=== PATIENT | male | born 1960 | race Caucasian/White ===

== ENCOUNTER 2023-06-08 13:39 | Inpatient (IN) ==
[2023-06-08] MEDS ORDERED: SODIUM CHLORIDE 0.9% 500 ML IV STA (14:12)
--- NOTE | 2023-06-08 14:25 | Emergency Department Note ---
Impression & Plan Lower abdominal pain, Diverticulitis, Abscess, Leukocytosis, Lyme disease ED Provider Note NAME: ONRMAN QUEZADA AGE: 62 SEX: M : 1960 ARRIVES VIA: Walk-In INFORMANT: [Patient] ED PROVIDER(S): [Roger Cristina MD] CHIEF COMPLAINT: Abdominal pain HISTORY OF PRESENT ILLNESS: The patient is a 62-year-old male who presents to the ER feeling unwell for around 2 months. The patient states that the whole family had pinworms and he decided to take treatment on May 26, about a week and a half ago. Patient states that he feels he is even worse since then. He has noticed lower mid abdominal pain that is pinching. He has noticed a poor urinary stream. His urine has been at times dark. He has had nausea, no vomiting. He has had a decreased appetite and poor bowel movements. He has noticed that if he takes a really deep breath, he coughs, it also hurts in both lungs when he takes a very deep breath. He is not short of breath. He walked a mile yesterday without any difficulty. There has been no fever. No stuffy nose or sore throat. No rash. PMHx/PSHx: See Below SOCIAL HISTORY: See Below. PHYSICAL EXAM: GENERAL: Patient is in no acute distress. HEENT: No acute trauma, normocephalic atraumatic, mucous membranes moist, no nasal congestion. NECK: No stridor, no adenopathy, no meningismus, trachea is midline. LUNGS: Clear to auscultation bilaterally, no wheeze, no rhonchi, breath sounds equal. HEART: Without murmurs gallops or rubs, regular rate and rhythm. ABDOMEN: Soft, mildly tender over the mid lower abdomen in the area of the bladder, there is no bladder distention appreciated. EXTREMITIES: No cyanosis or edema, full range of motion of all the joints without pain or difficulty, no signs for acute trauma. NEUROLOGIC: Oriented x 3, no acute motor or sensory deficits, no focal weakness. SKIN: No rash, no jaundice, no diaphoresis. Groin: Circumcised, no scrotal erythema. DIFFERENTIAL DIAGNOSIS: Tickborne illness, diverticulitis, urinary retention, prostatitis, UTI, viral illness, renal or liver failure, anemia, among others. EMERGENCY DEPARTMENT COURSE/PROCEDURES: Prior/Outside records reviewed: None. ECG per my interpretation: Indication was abdominal pain and weakness. The ECG shows a normal sinus rhythm with some sinus arrhythmia. The rate is 79. There is no ST elevation, no PVCs. The QTc is 394. Continuous Cardiac Monitoring per my interpretation: An order was placed for continuous cardiac monitoring. The monitor shows a rate of 97 with normal sinus rhythm. Postvoid bladder scan showed just over 100 cc, mild retention. MEDICAL DECISION MAKING: There is a moderate leukocytosis, this would be consistent with infection. There is a slightly low hemoglobin at 13.5. There is a normal platelet count. Renal panel shows a sodium of 132, somewhat low. No renal failure. There were some elevated liver enzymes, the bilirubin though was normal. No evidence for pancreatitis. ECG shows a sinus rhythm, no ischemia. Cardiac enzyme testing x1 is not consistent with acute cardiac injury. Urinalysis did not show infection. Anaplasmosis and Babesia smears were negative, the send out testing is pending. Lyme disease testing was positive. COVID, influenza and RSV test were negative. Chest x-ray did not show mediastinal widening, pneumonia or pneumothorax per my review. Abdominal and pelvis CT shows diverticulitis with a walled off abscess. Postvoid bladder scan did not show significant urinary retention. On exam, the patient was nontoxic. He was tender in the mid lower abdomen. The patient received IV Cipro and IV Flagyl for the diverticulitis. He received IV saline. He did not want anything for pain. I did speak with general surgery, Dr. Blood. No acute surgical intervention required tonight. As per the radiology note, this abscess is not amendable to IR drainage. I spoke with the patient, I spoke with case management, the patient will be hospitalized. With regard to the positive Lyme disease testing. Patient apparently has had Lyme disease before and this may be a leftover result. Confirmatory testing has been sent to the reference lab. DISPOSITION: Patient presentation and findings warrant a hospital stay. Past Med/Surg History Medical History Resendez esophagus Lyme disease Surgical History (Updated 06/08/23 @ 17:54 by Ramon Robles MD) H/O vasectomy Family History (Updated 06/08/23 @ 17:54 by Ramon Robles MD) Denies family history of Diabetes Dyslipidemia Asthma Social History Smoking Status: Never smoker Feels Safe at Home: Yes Allergies Allergies Allergy/AdvReac Type Severity Reaction Status Date / Time shellfish derived Allergy Intermediate Vomiting Verified 06/08/23 16:38 Home Meds Home Medications Medication Instructions Recorded Confirmed ibuprofen 800 mg tablet 800 mg PO TID PRN Pain 06/08/23 06/08/23 omeprazole 20 mg capsule,delayed 20 mg PO QAM 06/08/23 06/08/23 release Results & Data (ED) Vital Signs Vital Signs - 24 hr 06/08/23 13:44 06/08/23 14:53 06/08/23 15:54 Temperature 37.2 C Temperature Source Temporal Artery Scan Pulse Rate 97 H Pulse Rate [Left Finger] 85 Pulse Rhythm [Left Finger] Regular Pulse Strength [Left Finger] Normal Respiratory Rate 20 18 Respiratory Effort / Characteristics Non-Labored Non-Labored Spontaneous Respiratory Depth Normal Normal Respiratory Pattern Regular Blood Pressure 144/87 H Blood Pressure [Left Arm] 133/70 Blood Pressure Mean 106 Blood Pressure Mean [Left Arm] 91 Blood Pressure Position [Left Arm] Lying Pulse Oximetry 96 97 96 Oxygen Delivery Method Room Air Room Air Room Air Sepsis Recent Fever Within 48 Hours No Sepsis New/Unexplained Change in Mental Status N/A Sepsis Action Taken by Nursing No Action Required 06/08/23 17:23 Temperature Temperature Source Pulse Rate Pulse Rate [Left Finger] 87 Pulse Rhythm [Left Finger] Pulse Strength [Left Finger] Respiratory Rate 20 Respiratory Effort / Characteristics Non-Labored Spontaneous Respiratory Depth Normal Respiratory Pattern Blood Pressure Blood Pressure [Left Arm] 136/72 Blood Pressure Mean Blood Pressure Mean [Left Arm] 93 Blood Pressure Position [Left Arm] Pulse Oximetry 95 Oxygen Delivery Method Room Air Sepsis Recent Fever Within 48 Hours Sepsis New/Unexplained Change in Mental Status Sepsis Action Taken by [facility] Medications Current Medication List: was personally reviewed by me Laboratory Data Attestation: I reviewed the patient's lab results. 06/08/23 14:40 06/08/23 14:40 Lab Results 06/08/23 06/08/23 06/08/23 Range/Units 14:40 14:40 14:40 WBC 15.85 H (4.8-10.8) K/ul RBC 4.73 (4.70-6.10) M/uL Hgb 13.5 L (14.0-18.0) g/dl Hct 41.0 L (42.0-52.0) % MCV 86.7 (80.0-100.0) fL MCH 28.5 (25.0-34.0) pg MCHC 32.9 (32.0-36.0) g/dL RDW Std Deviation 39.9 (36.4-46.3) fL RDW Coeff of Leah 12.6 (11.5-14.5) % Plt Count 322 (130-400) K/uL MPV 10.1 (9.4-12.4) fL Immature Gran % (Auto) 0.8 % Neut % (Auto) 77.7 % Lymph % (Auto) 9.8 % [place] % (Auto) 10.9 % Eos % (Auto) 0.5 % Baso % (Auto) 0.3 % Neut # (Auto) 12.32 H (1.40-6.50) K/uL Lymph # (Auto) 1.56 (1.2-3.4) K/uL [place] # (Auto) 1.72 H (0.11-0.59) K/uL Eos # (Auto) 0.08 (0-0.50) K/uL Baso # (Auto) 0.05 (0-0.2) K/uL Immature Gran # (Auto) 0.12 (0.01-0.20) K/uL Echinocytes 1+ Sodium 132 L (136-145) mmol/L Potassium 3.6 (3.5-5.1) mmol/L Chloride 100 (98-107) mmol/L Carbon Dioxide 25 (21-32) mmol/L Anion Gap 7 (3-11) BUN 13 (6-23) mg/dl Creatinine 1.01 (0.6-1.4) mg/dl Est Cr Clr Drug Dosing 79.3 ml/min Est GFR ( Amer) 92.6 ml/min Est GFR (Non-Af Amer) 79.9 ml/min BUN/Creatinine Ratio 12.9 (10-20) Glucose 95 (70-99(Fasting)) mg/dl Calcium 9.6 (8.6-10.3) mg/dl Total Bilirubin 1.0 (0.2-1.0) mg/dl AST 61 H (13-39) U/L ALT 126 H (7-52) U/L Alkaline Phosphatase 194 H (34-104) U/L Troponin I High Sens 9.2 (0-20) pg/ml Total Protein 7.7 (6.0-8.3) gm/dl Albumin 3.9 (3.4-5.0) gm/dl Globulin 3.8 (2.5-4.0) gm/dl Albumin/Globulin Ratio 1.0 (0.9-2) Lipase 7 L (11-82) U/L Urine Color Urine Appearance (Clear) Urine pH (4.5-7.5) Ur Specific [place] (1.000-1.030) Urine Protein (Negative) Urine Glucose (UA) (Negative) Urine Ketones (Negative) Urine Blood (Negative) Urine Nitrite (Negative) Urine Bilirubin (Negative) Urine Urobilinogen (Negative) Ur Leukocyte Esterase (Negative) Anaplasma Smear See Comment Cancelled Babesia Smear See Comment Cancelled Lyme Disease IgG Ab (Negative) Lyme Disease IgM Ab (Negative) SARS-CoV-2 (PCR) (Negative) Influenza Type A (PCR) (Neg) Influenza Type B (PCR) (Neg) RSV (RT-PCR) (Neg) 06/08/23 06/08/23 06/08/23 Range/Units 14:40 14:40 14:45 WBC (4.8-10.8) K/ul RBC (4.70-6.10) M/uL Hgb (14.0-18.0) g/dl Hct (42.0-52.0) % MCV (80.0-100.0) fL MCH (25.0-34.0) pg MCHC (32.0-36.0) g/dL RDW Std Deviation (36.4-46.3) fL RDW Coeff of Leah (11.5-14.5) % Plt Count (130-400) K/uL MPV (9.4-12.4) fL Immature Gran % (Auto) % Neut % (Auto) % Lymph % (Auto) % [place] % (Auto) % Eos % (Auto) % Baso % (Auto) % Neut # (Auto) (1.40-6.50) K/uL Lymph # (Auto) (1.2-3.4) K/uL [place] # (Auto) (0.11-0.59) K/uL Eos # (Auto) (0-0.50) K/uL Baso # (Auto) (0-0.2) K/uL Immature Gran # (Auto) (0.01-0.20) K/uL Echinocytes Sodium (136-145) mmol/L Potassium (3.5-5.1) mmol/L Chloride (98-107) mmol/L Carbon Dioxide (21-32) mmol/L Anion Gap (3-11) BUN (6-23) mg/dl Creatinine (0.6-1.4) mg/dl Est Cr Clr Drug Dosing ml/min Est GFR ( Amer) ml/min Est GFR (Non-Af Amer) ml/min BUN/Creatinine Ratio (10-20) Glucose (70-99(Fasting)) mg/dl Calcium (8.6-10.3) mg/dl Total Bilirubin (0.2-1.0) mg/dl AST (13-39) U/L ALT (7-52) U/L Alkaline Phosphatase (34-104) U/L Troponin I High Sens (0-20) pg/ml Total Protein (6.0-8.3) gm/dl Albumin (3.4-5.0) gm/dl Globulin (2.5-4.0) gm/dl Albumin/Globulin Ratio (0.9-2) Lipase (11-82) U/L Urine Color Dark Yellow Urine Appearance Clear (Clear) Urine pH 5.5 (4.5-7.5) Ur Specific [place] 1.014 (1.000-1.030) Urine Protein Negative (Negative) Urine Glucose (UA) Negative (Negative) Urine Ketones Negative (Negative) Urine Blood Negative (Negative) Urine Nitrite Negative (Negative) Urine Bilirubin Negative (Negative) Urine Urobilinogen Negative (Negative) Ur Leukocyte Esterase Negative (Negative) Anaplasma Smear Babesia Smear Lyme Disease IgG Ab Positive A (Negative) Lyme Disease IgM Ab Equivocal A (Negative) SARS-CoV-2 (PCR) NEGATIVE (Negative) Influenza Type A (PCR) Negative (Neg) Influenza Type B (PCR) Negative (Neg) RSV (RT-PCR) Negative (Neg) Administered Medications Discontinued Medications Sodium Chloride (Nss) 500 mls @ 999 mls/hr IV .Q31M STA Stop: 06/08/23 14:42 Last Infusion: 06/08/23 15:32 Dose: 0 mls/hr Documented By: Admin: 06/08/23 14:44 Dose: 999 mls/hr Documented By: ML Ciprofloxacin (Cipro / D5w) 400 mg in 200 mls @ 100 mls/hr IV NOW STA; Protocol Stop: 06/08/23 19:01 Last Infusion: 06/08/23 18:17 Dose: 0 mls/hr Documented By: Admin: 06/08/23 17:14 Dose: 100 mls/hr Documented By: MARLYS Metronidazole (Flagyl) 500 mg in 100 mls @ 100 mls/hr IV NOW STA; Protocol Stop: 06/08/23 18:01 Last Infusion: 06/08/23 18:17 Dose: 0 mls/hr Documented By: Admin: 06/08/23 17:14 Dose: 100 mls/hr Documented By: MARLYS Ioversol (Optiray 320 100ml) 86 ml IV ONCE ONE Stop: 06/08/23 15:43 Last Admin: 06/08/23 15:43 Dose: 86 ml Documented By: EDK Imaging Data Radiologist's Impression: Abdomen/Pelvis CT 06/08/23 14:[address] WITH IV CONTRAST CT DOSE: 1293.42 mGy.cm HISTORY: Acute lower abdominal pain lower abd pain TECHNIQUE: Multiaxial CT images of the abdomen and pelvis were performed following the IV administration of 86 cc of Optiray, A dose lowering technique was utilized adhering to the principles of ALARA. COMPARISON STUDY: None. FINDINGS: Subsegmental bibasilar atelectasis. Unremarkable spleen, pancreas and adrenal glands. Contracted gallbladder. Remarkable liver. Patent portal vein. Unremarkable kidneys. No hydronephrosis. Mild prostatomegaly. Mild nonspecific urinary bladder wall thickening. Small fat filled inguinal hernias are suggested. No aortic aneurysm or lymphadenopathy. There is no bowel obstruction. Air-fluid levels are noted throughout the large bowel. Colonic diverticulosis. There is wall thickening with mucosal hyperemia of the proximal sigmoid colon with adjacent inflammatory stranding and peritoneal thickening/enhancement. A focus of extraluminal gas is noted within the sigmoid mesocolon on image 217. Ill-defined adjacent fluid within the mesocolon measures up to 6 cm. The appendix is not definitively seen. Tiny fat filled umbilical hernia. Posterior annular disc bulge at L5-S1 with bilateral foraminal narrowing No acute fracture. IMPRESSION: 1. Acute sigmoid diverticulitis with contained perforation. There is a 6 cm phlegmon/developing abscess without a mature wall. Therefore this would not be amendable to percutaneous biopsy at this time. 2. No bowel obstruction. 3. Additional findings as above. ACT 112: Negative or not required by law. The above report was generated using voice recognition software. It may contain grammatical, syntax or spelling errors. Electronically signed by: Larry Osborne M.D. 06/08/2023 4:26 PM Chest X-Ray 06/08/23 14:13 XR chest 1V portable HISTORY: 62 years-old Male abd pain acute chest and abdominal pain COMPARISON: None TECHNIQUE: AP view of the chest FINDINGS: Cardiac mediastinal and hilar silhouettes are within normal limits. No pneumothorax, pleural effusion, airspace consolidation or pulmonary edema. Bones appear grossly intact. IMPRESSION: No acute process. ACT 112: Negative or not required by law. The above report was generated using voice recognition software. It may contain grammatical, syntax or spelling errors. Electronically signed by: Larry Osborne M.D. 06/08/2023 3:09 PM Discharge Plan Visit Data Chief Complaint: Abdominal Pain Stated Complaint: LOWER ABDOMINAL PAIN, PINWORMS ED Provider: Roger Cristina Discharge Problem: Lower abdominal pain, Diverticulitis, Abscess, Leukocytosis, Lyme disease Patient Disposition: Admitted As Inpatient Condition: Fair Discharge Instructions Interventions: ED Discharge Assessment Last Done: 06/08/23 21:04
[2023-06-08 15:07] LABS: Appearance Urine Clear (Clear); Bilirubin Urine Negative (Negative); Blood Urine Negative (Negative); Color Urine Dark Yellow; Glucose Urine UA Negative (Negative); Ketones Urine Negative (Negative); Leukocyte Esterase Urine Negative (Negative); Nitrite Urine Negative (Negative); Protein Urine Negative (Negative); Specific Gravity Urine 1.014 (1.000-1.030); Urobilinogen Urine Negative (Negative); pH Urine 5.5 (4.5-7.5)
--- NOTE | 2023-06-08 15:11 | XRay Report ---
XR chest 1V portable HISTORY: 62 years-old Male abd pain acute chest and abdominal pain COMPARISON: None TECHNIQUE: AP view of the chest FINDINGS: Cardiac mediastinal and hilar silhouettes are within normal limits. No pneumothorax, pleural effusion , airspace consolidation or pulmonary edema. Bones appear grossly intact. IMPRESSION: No acute process. ACT 112: Negative or not required by law. The above report was generated using voice recognition software. It may contain grammatical, syntax o r spelling errors. Electronically signed by: Larry Osborne M.D. 06/08/2023 3:09 PM
[2023-06-08 15:14] LABS: Basophils # (auto) 0.05 K/uL (0-0.2); Basophils % (auto) 0.3 %; Eosinophils # (auto) 0.08 K/uL (0-0.50); Eosinophils % (auto) 0.5 %; Hemoglobin 13.5 g/dl (14.0-18.0); Immature Granulocytes # (auto) 0.12 K/uL (0.01-0.20); Immature Granulocytes % (auto) 0.8 %; Lymphocytes # (auto) 1.56 K/uL (1.2-3.4); Lymphocytes % (auto) 9.8 %; Mean Corpuscular Hemoglobin 28.5 pg (25.0-34.0); Mean Corpuscular Hgb Conc 32.9 g/dL (32.0-36.0); Mean Corpuscular Volume 86.7 fL (80.0-100.0); Mean Platelet Volume 10.1 fL (9.4-12.4); Monocytes # (auto) 1.72 K/uL (0.11-0.59); Monocytes % (auto) 10.9 %; Neutrophils # (auto) 12.32 K/uL (1.40-6.50); Neutrophils % (auto) 77.7 %; Platelet Count 322 K/uL (130-400); RDW Coefficient of Variation 12.6 % (11.5-14.5); RDW Standard Deviation 39.9 fL (36.4-46.3); Red Blood Count 4.73 M/uL (4.70-6.10); White Blood Count 15.85 K/ul (4.8-10.8)
[2023-06-08 15:22] LABS: Albumin Level 3.9 gm/dl (3.4-5.0); Calcium 9.6 mg/dl (8.6-10.3); Potassium 3.6 mmol/L (3.5-5.1)
[2023-06-08 15:28] LABS: BUN Creatinine Ratio 12.9 (10-20); Creatinine Clr Calc Pharmacy 79.3 ml/min; Est GFR (African American) 92.6 ml/min; Est GFR (Non-African American) 79.9 ml/min; Globulin 3.8 gm/dl (2.5-4.0); Total Protein 7.7 gm/dl (6.0-8.3)
[2023-06-08 15:32] LABS: Influenza A virus by PCR Negative (Neg); Influenza B virus by PCR Negative (Neg); RSV by PCR Negative (Neg); SARS CoV2 RNA(COVID-19) Ceph NEGATIVE (Negative)
[2023-06-08 15:32] LABS: Troponin I High Sensitivity 9.2 pg/ml (0-20)
[2023-06-08 15:41] LABS: Echinocytes 1+
[2023-06-08] MEDS ORDERED: OPTIRAY 320 100ml IV ONE (15:42)
--- NOTE | 2023-06-08 16:29 | CT Scan Report ---
ABDOMEN AND PELVIS CT WITH IV CONTRAST CT DOSE: 1293.42 mGy.cm HISTORY: Acute lower abdominal pain lower abd pain TECHNIQUE: Multiaxial CT images of the abdomen and pelvis were performed following the IV administrat ion of 86 cc of Optiray, A dose lowering technique was utilized adhering to the principles of ALARA. COMPARISON STUDY: None. FINDINGS: Subsegmental bibasilar atelectasis. Unremarkable spleen, pancreas and adrenal glands. Contr acted gallbladder. Remarkable liver. Patent portal vein. Unremarkable kidneys. No hydronephrosis. Mil d prostatomegaly. Mild nonspecific urinary bladder wall thickening. Small fat filled inguinal hernias are suggested. No aortic aneurysm or lymphadenopathy. There is no bowel obstruction. Air-fluid levels are noted throughout the large bowel. Colonic diverti culosis. There is wall thickening with mucosal hyperemia of the proximal sigmoid colon with adjacent inflammatory stranding and peritoneal thickening/enhancement. A focus of extraluminal gas is noted wi thin the sigmoid mesocolon on image 217. Ill-defined adjacent fluid within the mesocolon measures up to 6 cm. The appendix is not definitively seen. Tiny fat filled umbilical hernia. Posterior annular d isc bulge at L5-S1 with bilateral foraminal narrowing No acute fracture. IMPRESSION: 1. Acute sigmoid diverticulitis with contained perforation. There is a 6 cm phlegmon/developing absce ss without a mature wall. Therefore this would not be amendable to percutaneous biopsy at this time. 2. No bowel obstruction. 3. Additional findings as above. ACT 112: Negative or not required by law. The above report was generated using voice recognition software. It may contain grammatical, syntax o r spelling errors. Electronically signed by: Larry Osborne M.D. 06/08/2023 4:26 PM
[2023-06-08] MEDS ORDERED: CIPROFLOXACIN / D5W 400 MG/200 ML BAG IV STA (17:02)
[2023-06-08] MEDS ORDERED: metroNIDAZOLE 500 MG/100 ML BAG IV STA (17:02)
--- NOTE | 2023-06-08 18:01 | History & Physical Report ---
Date of Service June 08, 2023 Assessment & Plan (1) Abscess of sigmoid colon due to diverticulitis: Plan: 62-year-old male with past medical history of Resendez's esophagus who presented to the ED with abdominal pain since last 1 month. left lower abdominal pain about a month ago which progressively worsened. Leukocytosis present. Mild hyponatremia sodium of 132. transaminitis with elevated AST, ALT and ALP. Lipase is within normal limits. Urinalysis not suggestive of infection. CT abdomen pelvis was done; personally reviewed. Found to have acute sigmoid diverticulitis with contained perforation. 6 cm phlegmon/developing abscess without mature wall. chest x-ray reviewed personally; no acute process. EKG personally interpreted; normal sinus rhythm N.p.o. for now with sips of water and medication IV Zosyn IV fluids with D5 NS Pain control with Tylenol and morphine. General surgery contacted from the ED; we will follow-up on recommendation. Obtain hepatitis panel and right upper quadrant ultrasound for elevated liver enzyme Mild hyponatremia Sodium of 132 Likely due to poor oral intake Started on normal saline We will follow-up on BMP tomorrow AM. History of Resendez esophagus On omeprazole DVT prophylaxis SCDs Full code Time spent evaluating patient, direct bedside care, chart review, placing orders, interpretation of diagnostic studies, discussion with consultants, patient, and family members, as well as other required patient management activities is 75 minutes. Please note the above document was generated using voice recognition software. It may contain grammatical, syntax or spelling errors. Any formal questions or concerns about the content, text or information contained within the body of this dictation should be directly addressed to the provider for clarification History of Present Illness Chief Complaint: Abdominal pain for 1 month Primary Care Provider: Donavon Saunders PA-C History obtained from interview with the patient and chart review. Patient is a 62-year-old male with past medical history of Resendez's esophagus who presented to the ED with abdominal pain since last 1 month. Patient reports that he started to notice left lower abdominal pain about a month ago which progressively worsened. He reports night sweats; denies any episode of fever or chills. He reports headache; occasional diarrhea and pain on urination He denies diarrhea or constipation; no nausea or vomiting. He reports taking medication for pinworms about 2 weeks ago; reports that things have worsened more since then. He was recommended by his family member to seek medical attention. In the ED, patient was afebrile, normotensive and saturating well on room air. On lab work; leukocytosis present. Mild hyponatremia sodium of 132. He also has transaminitis with elevated AST, ALT and ALP. Lipase is within normal limits. Urinalysis not suggestive of infection. CT abdomen pelvis was done; personally reviewed. Found to have acute sigmoid diverticulitis with contained perforation. 6 cm phlegmon/developing abscess without mature wall. chest x-ray reviewed personally; no acute process. EKG personally interpreted; normal sinus rhythm ED physician discussed the case with general surgery. Recommended admission with IV antibiotics, supportive care and bowel rest. Past medical history; Resendez esophagus; reports to get endoscopy every 2 years Past surgical history; vasectomy Social history; does not smoke. Drinks 1-2 beers daily. Last drink was 4 days ago. No history of withdrawals. Family history; no pertinent history. Allergies Allergy/AdvReac Type Severity Reaction Status Date / Time shellfish derived Allergy Intermediate Vomiting Verified 06/08/23 16:38 Home Medications Medication Instructions Recorded Confirmed Type ibuprofen 800 mg tablet 800 mg PO TID PRN Pain 06/08/23 06/08/23 History omeprazole 20 mg capsule,delayed 20 mg PO QAM 06/08/23 06/08/23 History release Past Med/Surg History Medical History (Updated 06/08/23 @ 17:55 by Ramon Robles MD) Resendez esophagus Surgical History (Updated 06/08/23 @ 17:54 by Ramon Robles MD) H/O vasectomy Family History (Updated 06/08/23 @ 17:54 by Ramon Robles MD) Denies family history of Diabetes Dyslipidemia Asthma Social History Smoking Status: Never smoker Feels Safe at Home: Yes Review of Systems Review of Systems: All systems reviewed & are unremarkable except as noted in Subjective Physical Exam Physical Exam: Constitutional: WD/WN, vitals as above, NAD, sitting up in bed, pleasant, conversing easily Respiratory: Bilateral vesicular breath sound. Cardiovascular: RRR, no murmur, no edema Vessels: no JVD or carotid bruit Chest: normal inspection of chest Abdomen: Tenderness present in left lower quadrant. Bowel sound present. Musculoskeletal: no cyanosis or clubbing, extremities motor strength 5/5 Skin: no rashes, warm and dry normal turgor Neurologic: PERRL, EOMI, accommodation nl, no face palsy, no dysarthria CN's II- XI intact bilaterally and moves all extremities Psychiatric: A+Ox3, euthymic affect Results & Data Results & Data Vital Signs (Past 12 Hours) Vital Signs Temp Pulse Pulse Resp BP BP Pulse Ox 06/08/23 17:23 87 20 136/72 95 06/08/23 15:54 85 18 133/70 96 06/08/23 14:53 97 06/08/23 13:44 37.2 C 97 H 20 144/87 H 96 O2 Del Method 06/08/23 17:23 Room Air 06/08/23 15:54 Room Air 06/08/23 14:53 Room Air 06/08/23 13:44 Room Air Laboratory Results Laboratory Results WBC 15.85 K/ul (4.8-10.8) H 06/08/23 14:40 RBC 4.73 M/uL (4.70-6.10) 06/08/23 14:40 Hgb 13.5 g/dl (14.0-18.0) L 06/08/23 14:40 Hct 41.0 % (42.0-52.0) L 06/08/23 14:40 MCV 86.7 fL (80.0-100.0) 06/08/23 14:40 MCH 28.5 pg (25.0-34.0) 06/08/23 14:40 MCHC 32.9 g/dL (32.0-36.0) 06/08/23 14:40 RDW Std Deviation 39.9 fL (36.4-46.3) 06/08/23 14:40 RDW Coeff of Leah 12.6 % (11.5-14.5) 06/08/23 14:40 Plt Count 322 K/uL (130-400) 06/08/23 14:40 MPV 10.1 fL (9.4-12.4) 06/08/23 14:40 Immature Gran % (Auto) 0.8 % 06/08/23 14:40 Neut % (Auto) 77.7 % 06/08/23 14:40 Lymph % (Auto) 9.8 % 06/08/23 14:40 [place] % (Auto) 10.9 % 06/08/23 14:40 Eos % (Auto) 0.5 % 06/08/23 14:40 Baso % (Auto) 0.3 % 06/08/23 14:40 Neut # (Auto) 12.32 K/uL (1.40-6.50) H 06/08/23 14:40 Lymph # (Auto) 1.56 K/uL (1.2-3.4) 06/08/23 14:40 [place] # (Auto) 1.72 K/uL (0.11-0.59) H 06/08/23 14:40 Eos # (Auto) 0.08 K/uL (0-0.50) 06/08/23 14:40 Baso # (Auto) 0.05 K/uL (0-0.2) 06/08/23 14:40 Immature Gran # (Auto) 0.12 K/uL (0.01-0.20) 06/08/23 14:40 Echinocytes 1+ 06/08/23 14:40 Sodium 132 mmol/L (136-145) L 06/08/23 14:40 Potassium 3.6 mmol/L (3.5-5.1) 06/08/23 14:40 Chloride 100 mmol/L (98-107) 06/08/23 14:40 Carbon Dioxide 25 mmol/L (21-32) 06/08/23 14:40 Anion Gap 7 (3-11) 06/08/23 14:40 BUN 13 mg/dl (6-23) 06/08/23 14:40 Creatinine 1.01 mg/dl (0.6-1.4) 06/08/23 14:40 Est Cr Clr Drug Dosing 79.3 ml/min 06/08/23 14:40 Est GFR ( Amer) 92.6 ml/min 06/08/23 14:40 Est GFR (Non-Af Amer) 79.9 ml/min 06/08/23 14:40 BUN/Creatinine Ratio 12.9 (10-20) 06/08/23 14:40 Glucose 95 mg/dl (70-99(Fasting)) 06/08/23 14:40 Calcium 9.6 mg/dl (8.6-10.3) 06/08/23 14:40 Total Bilirubin 1.0 mg/dl (0.2-1.0) 06/08/23 14:40 AST 61 U/L (13-39) H 06/08/23 14:40 ALT 126 U/L (7-52) H 06/08/23 14:40 Alkaline Phosphatase 194 U/L (34-104) H 06/08/23 14:40 Troponin I High Sens 9.2 pg/ml (0-20) 06/08/23 14:40 Total Protein 7.7 gm/dl (6.0-8.3) 06/08/23 14:40 Albumin 3.9 gm/dl (3.4-5.0) 06/08/23 14:40 Globulin 3.8 gm/dl (2.5-4.0) 06/08/23 14:40 Albumin/Globulin Ratio 1.0 (0.9-2) 06/08/23 14:40 Lipase 7 U/L (11-82) L 06/08/23 14:40 Urine Color Dark Yellow 06/08/23 14:40 Urine Appearance Clear (Clear) 06/08/23 14:40 Urine pH 5.5 (4.5-7.5) 06/08/23 14:40 Ur Specific [place] 1.014 (1.000-1.030) 06/08/23 14:40 Urine Protein Negative (Negative) 06/08/23 14:40 Urine Glucose (UA) Negative (Negative) 06/08/23 14:40 Urine Ketones Negative (Negative) 06/08/23 14:40 Urine Blood Negative (Negative) 06/08/23 14:40 Urine Nitrite Negative (Negative) 06/08/23 14:40 Urine Bilirubin Negative (Negative) 06/08/23 14:40 Urine Urobilinogen Negative (Negative) 06/08/23 14:40 Ur Leukocyte Esterase Negative (Negative) 06/08/23 14:40 Anaplasma Smear Cancelled 06/08/23 14:40 Anaplasma Smear See Comment 06/08/23 14:40 Babesia Smear Cancelled 06/08/23 14:40 Babesia Smear See Comment 06/08/23 14:40 SARS-CoV-2 (PCR) NEGATIVE (Negative) 06/08/23 14:45 Influenza Type A (PCR) Negative (Neg) 06/08/23 14:45 Influenza Type B (PCR) Negative (Neg) 06/08/23 14:45 RSV (RT-PCR) Negative (Neg) 06/08/23 14:45 Impressions Abdomen/Pelvis CT 06/08/23 14:[address] WITH IV CONTRAST CT DOSE: 1293.42 mGy.cm HISTORY: Acute lower abdominal pain lower abd pain TECHNIQUE: Multiaxial CT images of the abdomen and pelvis were performed following the IV administration of 86 cc of Optiray, A dose lowering technique was utilized adhering to the principles of ALARA. COMPARISON STUDY: None. FINDINGS: Subsegmental bibasilar atelectasis. Unremarkable spleen, pancreas and adrenal glands. Contracted gallbladder. Remarkable liver. Patent portal vein. Unremarkable kidneys. No hydronephrosis. Mild prostatomegaly. Mild nonspecific urinary bladder wall thickening. Small fat filled inguinal hernias are suggested. No aortic aneurysm or lymphadenopathy. There is no bowel obstruction. Air-fluid levels are noted throughout the large bowel. Colonic diverticulosis. There is wall thickening with mucosal hyperemia of the proximal sigmoid colon with adjacent inflammatory stranding and peritoneal thickening/enhancement. A focus of extraluminal gas is noted within the sigmoid mesocolon on image 217. Ill-defined adjacent fluid within the mesocolon measures up to 6 cm. The appendix is not definitively seen. Tiny fat filled umbilical hernia. Posterior annular disc bulge at L5-S1 with bilateral foraminal narrowing No acute fracture. IMPRESSION: 1. Acute sigmoid diverticulitis with contained perforation. There is a 6 cm phlegmon/developing abscess without a mature wall. Therefore this would not be amendable to percutaneous biopsy at this time. 2. No bowel obstruction. 3. Additional findings as above. ACT 112: Negative or not required by law. The above report was generated using voice recognition software. It may contain grammatical, syntax or spelling errors. Electronically signed by: Larry Osborne M.D. 06/08/2023 4:26 PM Chest X-Ray 06/08/23 14:13 XR chest 1V portable HISTORY: 62 years-old Male abd pain acute chest and abdominal pain COMPARISON: None TECHNIQUE: AP view of the chest FINDINGS: Cardiac mediastinal and hilar silhouettes are within normal limits. No pneumothorax, pleural effusion, airspace consolidation or pulmonary edema. Bones appear grossly intact. IMPRESSION: No acute process. ACT 112: Negative or not required by law. The above report was generated using voice recognition software. It may contain grammatical, syntax or spelling errors. Electronically signed by: Larry Osborne M.D. 06/08/2023 3:09 PM Code Status & VTE Plan VTE Prophylaxis Plan VTE Prophylaxis will be ordered: Yes
[2023-06-08 18:04] LABS: Lyme Ab IgG w/WB Rflx Positive (Negative); Lyme Ab IgM w/WB Rflx Equivocal (Negative)
--- NOTE | 2023-06-08 19:40 | Surgery Consultation ---
Date of Consultation June 08, 2023 Assessment & Plan (1) Abscess of sigmoid colon due to diverticulitis: Alli has been admitted under medicine for actue diverticulitis. He is currently receiving IV Zosyn, bowel rest, supportive care. Abscess is currently not amenable to percutaneous drainage, but if patient does not improve with conservative care, will consider repeating CT. There is not acute surgical intervention required, case was reviewed with Dr. Blood. Supervising Physician Co-Signing Physician Notes I personally saw and evaluated the patient with Maisha Pradhan PA-C and agree with the assessment and plan. 62-year-old male with acute sigmoid diverticulitis with phlegmon versus developing abscess CT images and results were personally viewed interpreted by myself He has had about 2 weeks of abdominal pain and his CT scan is consistent with a perforated diverticulitis He has been admitted to the medical team and kept n.p.o. and started on IV antibiotics We will hold off on IR consult at this time as there is no mature abscess yet to drain We will follow along History of Present Illness Reason for Consultation: Diverticulitis History of Present Illness Alli is being seen in consultation for acute diverticulitis. He presented to the ED earlier today with history of LLQ abdominal pain which initially began about 1 month ago. He reports abdominal pain has been getting progressively worse, now with diarrhea. He notes the occasional night sweat, no documented fevers. of note, he was being treated for pinworms about 2 weeks ago. He has PMH of Resendez esophagus, no abdominal surgical history. CT of abd/pelvis done in the ED demonstrates Acute sigmoid diverticulitis with contained perforation. There is a 6 cm phlegmon/developing abscess without a mature wall. Labs reveal leukocytosis of 15.8, transaminitis with elevated AST, ALT and ALP, mild hyponatremia. Patient denies CP, SOB, fevers/chills. Allergies Allergy/AdvReac Type Severity Reaction Status Date / Time shellfish derived Allergy Intermediate Vomiting Verified 06/08/23 16:38 Home Medications Medication Instructions Recorded Confirmed Type ibuprofen 800 mg tablet 800 mg PO TID PRN Pain 06/08/23 06/08/23 History omeprazole 20 mg capsule,delayed 20 mg PO QAM 06/08/23 06/08/23 History release Patient History Medical History Resendez esophagus Lyme disease Surgical History (Updated 06/08/23 @ 17:54 by Ramon Robles MD) H/O vasectomy Family History (Updated 06/08/23 @ 17:54 by Ramon Robles MD) Denies family history of Diabetes Dyslipidemia Asthma Social History Smoking Status: Never smoker Communication Ability: Effective Package Drier Required: No Beliefs That Will Affect Care: None Feels Safe at Home: No Any Concerns about Your Family Situation: No Would You Like to Speak to Someone About Your Situation: No Safety Concerns: Feels Safe At This Time Assistive Devices: None Review of Systems Review of Systems: All systems reviewed & are unremarkable except as noted in HPI & below Physical Exam Constitutional: well developed and well nourished; no acute distress Eyes: PERRL, conjunctivae normal, anicteric sclerae Respiratory: normal respiratory effort, lungs clear to auscultation Cardiovascular: RRR, no murmur, no edema Gastrointestinal (Abdomen): Inspection/Auscultation: abdomen normal to inspection and normal bowel sounds; abdomen not distended Percussion/Palpation: + abdomen tender (LLQ) and abdomen soft; no guarding Skin: no rashes, warm and dry Psychiatric: A+Ox3, euthymic affect Results & Data Vital Signs (Past 12 Hours) Vital Signs Temp Pulse Pulse Resp BP BP Pulse Ox 06/08/23 19:10 86 21 94 06/08/23 19:00 75 21 96 06/08/23 19:00 132/78 06/08/23 18:37 19 140/101 H 98 06/08/23 17:23 87 20 136/72 95 06/08/23 15:54 85 18 133/70 96 06/08/23 14:53 97 06/08/23 13:44 37.2 C 97 H 20 144/87 H 96 O2 Del Method 06/08/23 19:10 06/08/23 19:00 06/08/23 19:00 06/08/23 18:37 Room Air 06/08/23 17:23 Room Air 06/08/23 15:54 Room Air 06/08/23 14:53 Room Air 06/08/23 13:44 Room Air Laboratory Results Abnormal lab results 06/08/23 06/08/23 06/08/23 Range/Units 14:40 14:40 14:40 WBC 15.85 H (4.8-10.8) K/ul Hgb 13.5 L (14.0-18.0) g/dl Hct 41.0 L (42.0-52.0) % Neut # (Auto) 12.32 H (1.40-6.50) K/uL [place] # (Auto) 1.72 H (0.11-0.59) K/uL Sodium 132 L (136-145) mmol/L AST 61 H (13-39) U/L ALT 126 H (7-52) U/L Alkaline Phosphatase 194 H (34-104) U/L Lipase 7 L (11-82) U/L Lyme Disease IgG Ab Positive A (Negative) Lyme Disease IgM Ab Equivocal A (Negative) Diagnostic Findings ABDOMEN AND PELVIS CT WITH IV CONTRAST CT DOSE: 1293.42 mGy.cm HISTORY: Acute lower abdominal pain lower abd pain TECHNIQUE: Multiaxial CT images of the abdomen and pelvis were performed following the IV administration of 86 cc of Optiray, A dose lowering technique was utilized adhering to the principles of ALARA. COMPARISON STUDY: None. FINDINGS: Subsegmental bibasilar atelectasis. Unremarkable spleen, pancreas and adrenal glands. Contracted gallbladder. Remarkable liver. Patent portal vein. Unremarkable kidneys. No hydronephrosis. Mild prostatomegaly. Mild nonspecific urinary bladder wall thickening. Small fat filled inguinal hernias are suggested. No aortic aneurysm or lymphadenopathy. There is no bowel obstruction. Air-fluid levels are noted throughout the large bowel. Colonic diverticulosis. There is wall thickening with mucosal hyperemia of the proximal sigmoid colon with adjacent inflammatory stranding and peritoneal thickening/enhancement. A focus of extraluminal gas is noted within the sigmoid mesocolon on image 217. Ill-defined adjacent fluid within the mesocolon measures up to 6 cm. The appendix is not definitively seen. Tiny fat filled umbilical hernia. Posterior annular disc bulge at L5-S1 with bilateral foraminal narrowing No acute fracture. IMPRESSION: 1. Acute sigmoid diverticulitis with contained perforation. There is a 6 cm phlegmon/developing abscess without a mature wall. Therefore this would not be amendable to percutaneous biopsy at this time. 2. No bowel obstruction. 3. Additional findings as above. PG Care Time/CCT Total # of Minutes Spent Total Time Spent with Patient: Total time spent is greater than 50% in coordination of care (as documented) at patient's floor/unit and/or counseling patient: Coding Level of Care Code 49386 INT INP/OBS CARE MIN Diagnoses Abscess of sigmoid colon due to diverticulitis K57.20
[2023-06-08] MEDS ORDERED: MoRPHine SULFATE 2 MG/ML CARP IV PRN (21:02)
[2023-06-08] MEDS ORDERED: PIPERACILLIN/TAZOBACTAM 4.5 GM (over 30 mins) IV ONE (21:15)
[2023-06-08] MEDS: ACETAMINOPHEN 325 MG TAB PO PRN (21:36)
[2023-06-08] MEDS: D5NSS + 20MEQ KCL 20 MEQ/1,000 ML BAG IV SCH (22:11)
[2023-06-09] MEDS: PIPERACILLIN/TAZOBACTAM 4.5 GM in DEXTROSE 5% 100 ML IV SCH ×2 (04:00→13:47)
[2023-06-09 04:26] LABS: Basophils # (auto) 0.05 K/uL (0-0.2); Basophils % (auto) 0.3 %; Eosinophils # (auto) 0.17 K/uL (0-0.50); Eosinophils % (auto) 1.2 %; Hematocrit (blood only) 38.1 % (42.0-52.0); Hemoglobin 12.6 g/dl (14.0-18.0); Immature Granulocytes # (auto) 0.13 K/uL (0.01-0.20); Immature Granulocytes % (auto) 0.9 %; Lymphocytes # (auto) 1.33 K/uL (1.2-3.4); Mean Corpuscular Hemoglobin 28.7 pg (25.0-34.0); Mean Corpuscular Hgb Conc 33.1 g/dL (32.0-36.0); Mean Corpuscular Volume 86.8 fL (80.0-100.0); Mean Platelet Volume 9.8 fL (9.4-12.4); Monocytes # (auto) 1.97 K/uL (0.11-0.59); Monocytes % (auto) 13.4 %; Neutrophils % (auto) 75.2 %; Platelet Count 286 K/uL (130-400); RDW Coefficient of Variation 12.6 % (11.5-14.5); RDW Standard Deviation 40.4 fL (36.4-46.3); Red Blood Count 4.39 M/uL (4.70-6.10); White Blood Count 14.75 K/ul (4.8-10.8)
[2023-06-09 04:49] LABS: Albumin Globulin Ratio 1.1 (0.9-2); Albumin Level 3.5 gm/dl (3.4-5.0); BUN Creatinine Ratio 10.8 (10-20); Bilirubin,Total 0.9 mg/dl (0.2-1.0); Calcium 9.3 mg/dl (8.6-10.3); Creatinine Clr Calc Pharmacy 78.5 ml/min; Est GFR (African American) 91.5 ml/min; Globulin 3.3 gm/dl (2.5-4.0); Total Protein 6.8 gm/dl (6.0-8.3)
[2023-06-09] MEDS: ACETAMINOPHEN 325 MG TAB PO PRN ×3 (07:15→20:37)
--- NOTE | 2023-06-09 08:14 | Ultrasound Report ---
US liver CLINICAL HISTORY: Elevated liver enzymes TECHNIQUE: Multiple real-time sonographic images of the right upper quadrant were obtained. Comparison: Comparison is made to CT abdomen pelvis 06/08/2023 FINDINGS: The liver is diffusely echogenic in appearance with poor ultrasound penetration, with normal contour, which is consistent with fatty infiltration. No focal mass lesions are seen. No intrahepatic duct al dilatation is seen. No gallstones or sludge are identified within the gallbladder. The gallbladde r wall is not thickened. There is no pericholecystic fluid present. A sonographic Munguia's sign was n ot elicited by the assistant professor of geography. The common duct measures 0.3 cm in diameter at the level of the hep atic artery. The visualized portions of the pancreas appear normal. The right kidney shows normal echogenicity, cortical thickness and renal contour. The right kidney sh ows no evidence of hydronephrosis or mass. No ascites or free fluid is seen in Cunha's pouch. IMPRESSION: Hepatic steatosis. ACT 112: Negative or not required by law. Electronically signed by: Gnio Barnes M.D. 06/09/2023 8:13 AM
[2023-06-09] MEDS: DOXYCYCLINE HYCLATE 100 MG CAP PO SCH ×2 (08:42→20:37)
--- NOTE | 2023-06-09 08:42 | Surgery Progress Note ---
Date of Service June 09, 2023 Assessment & Plan (1) Abscess of sigmoid colon due to diverticulitis: Plan: Patient here with acute sigmoid diverticulitis with developing phlegmon/abscess ~6cm WBC 14 (15). Vitals stable and patient afebrile Continue NPO/IVF/IV abx today for bowel rest Will follow along closely, no indication for acute surgical intervention at this time Will need outpt c-scope in future once recovers from this Admission and Anticipated Discharge Date Admission Date: June 08, 2023 Supervising Physician Co-Signing Physician Notes I personally saw and evaluated the patient with Melanie Chi PA-C and agree with the assessment and plan. 62-year-old male with acute sigmoid diverticulitis with phlegmon versus developing abscess He remained stable We will keep him n.p.o. for today If he does not have a lot of improvement, would plan on rescanning him in 2 to 3 days to see if there is something is developed into a drainable abscess Subjective Patient feeling okay- does report some LLQ discomfort. + intermittent nausea. no emesis. last c-scope 3 years ago. reports history of heavy beer drinking. Physical Exam Physical Exam: awake/alert, no distress Gastrointestinal (Abdomen): Inspection/Auscultation: + abdomen distended (mild) Percussion/Palpation: + abdomen tender (ttp in the LLQ) and abdomen soft Results & Data Vital Signs (Past 12 Hours) Vital Signs Temp Pulse Pulse Resp BP BP Pulse Ox 06/09/23 07:33 78 18 123/70 98 06/09/23 01:00 64 19 95 06/09/23 01:00 117/72 06/09/23 00:59 70 22 95 06/09/23 00:59 121/73 06/09/23 00:58 64 20 06/09/23 00:20 67 21 95 06/09/23 00:10 65 22 93 06/09/23 00:00 61 21 94 06/09/23 00:00 107/67 06/08/23 23:50 63 21 93 06/08/23 23:40 63 23 94 06/08/23 23:30 68 23 94 06/08/23 23:30 115/71 06/08/23 23:20 73 22 93 06/08/23 23:10 72 23 93 06/08/23 23:00 72 23 94 06/08/23 23:00 114/74 06/08/23 22:50 74 24 92 06/09/23 00:00 63 06/09/23 01:11 36.7 C 66 16 117/72 94 06/08/23 22:40 81 26 H 92 06/08/23 22:30 78 24 93 06/08/23 22:30 131/73 06/08/23 22:20 86 27 H 91 06/08/23 22:10 78 27 H 92 06/08/23 22:00 82 26 H 93 06/08/23 22:00 126/82 06/08/23 21:50 73 26 H 93 06/08/23 21:40 80 27 H 94 06/08/23 21:30 84 23 92 06/08/23 21:30 132/77 06/08/23 21:20 80 27 H 93 06/08/23 21:10 80 27 H 93 06/08/23 21:07 06/08/23 21:00 79 28 H 94 06/08/23 21:00 130/86 06/08/23 20:50 84 28 H 94 06/08/23 20:40 83 30 H 92 Pulse Ox O2 Del Method O2 Del Method 06/09/23 07:33 Room Air 06/09/23 01:00 06/09/23 01:00 06/09/23 00:59 06/09/23 00:59 06/09/23 00:58 06/09/23 00:20 06/09/23 00:10 06/09/23 00:00 06/09/23 00:00 06/08/23 23:50 06/08/23 23:40 06/08/23 23:30 06/08/23 23:30 06/08/23 23:20 06/08/23 23:10 06/08/23 23:00 06/08/23 23:00 06/08/23 22:50 06/09/23 00:00 06/09/23 01:11 Room Air 06/08/23 22:40 06/08/23 22:30 06/08/23 22:30 06/08/23 22:20 06/08/23 22:10 06/08/23 22:00 06/08/23 22:00 06/08/23 21:50 06/08/23 21:40 06/08/23 21:30 06/08/23 21:30 06/08/23 21:20 06/08/23 21:10 06/08/23 21:07 95 Room Air 06/08/23 21:00 06/08/23 21:00 06/08/23 20:50 06/08/23 20:40 PG Care Time/CCT Total # of Minutes Spent Total Time Spent with Patient: Total time spent is greater than 50% in coordination of care (as documented) at patient's floor/unit and/or counseling patient: Coding Level of Care Code 90696 SUB INP/OBS CARE 11/13MIN Diagnoses Abscess of sigmoid colon due to diverticulitis K57.20
[2023-06-09] MEDS: D5NSS + 20MEQ KCL 20 MEQ/1,000 ML BAG IV SCH (11:06)
--- NOTE | 2023-06-09 12:31 | Electrocardiogram Report ---
Test Reason : Blood Pressure : / mmHG Vent. Rate : 079 BPM Atrial Rate : 079 BPM P-R Int : 168 ms QRS Dur : 074 ms QT Int : 344 ms P-R-T Axes : 054 015 036 degrees QTc Int : 394 ms Normal sinus rhythm with sinus arrhythmia Normal ECG No previous ECGs available Confirmed by Gabe Clayton ([id number]) on 06/09/2023 12:30:51 PM Referred By: REFERRED SELF Confirmed By:Gabe Clayton
[2023-06-09] MEDS: metroNIDAZOLE 500 MG/100 ML BAG IV SCH ×2 (14:30→22:37)
[2023-06-09] MEDS: CEFEPIME 2,000 MG in SYRINGE 0 ML IV SCH ×2 (14:30→22:37)
[2023-06-09] MEDS ORDERED: PNEUMOCOCCAL Polysaccharide Vaccine 25mcg/0.5mL vial/Syr IM ONE (15:15)
--- NOTE | 2023-06-09 16:22 | Hospitalist Progress Note ---
Date of Service June 09, 2023 Assessment & Plan (1) Abscess of sigmoid colon due to diverticulitis: Plan: 62-year-old male with past medical history of Resendez's esophagus who presented to the ED with abdominal pain since last 1 month. left lower abdominal pain about a month ago which progressively worsened. CT abdomen pelvis done in the ED; found to have acute sigmoid diverticulitis with contained perforation. 6 cm phlegmon/developing abscess without mature wall Leukocytosis with WBC of 14. Sodium improved to 134. Transaminitis improving. Lipase is within normal limits. Urinalysis not suggestive of infection. chest x-ray reviewed personally; no acute process. EKG personally interpreted; normal sinus rhythm Ultrasound liver suggestive of fatty infiltration Blood culture pending. Appreciate general surgery's input; recommend to keep n.p.o. for now. IV cefepime plus Flagyl IV fluids with D5 NS Pain control with Tylenol and morphine. Mild hyponatremia Sodium of 132 on presentation Likely due to poor oral intake Started on normal saline with improvement to sodium of 134. History of Resendez esophagus On omeprazole DVT prophylaxis SCDs for now for possible procedure. Full code Time spent evaluating patient, direct bedside care, chart review, placing orders, interpretation of diagnostic studies, discussion with consultants, patient, and family members, as well as other required patient management activities is 60 minutes. Please note the above document was generated using voice recognition software. It may contain grammatical, syntax or spelling errors. Any formal questions or c oncerns about the content, text or information contained within the body of this dictation should be directly addressed to the provider for clarification Admission and Anticipated Discharge Date Admission Date: June 08, 2023 Subjective Patient seen and examined at bedside. He is lying on the bed comfortably; not in any distress. No increasing pain in left lower quadrant. Review of Systems Review of Systems: All systems reviewed & are unremarkable except as noted in Subjective Physical Exam Physical Exam: Constitutional: WD/WN, vitals as above, NAD, sitting up in bed, pleasant, conversing easily Respiratory: Bilateral vesicular breath sound. Cardiovascular: RRR, no murmur, no edema Vessels: no JVD or carotid bruit Chest: normal inspection of chest Abdomen: Tenderness present in left lower quadrant. Bowel sound present. Musculoskeletal: no cyanosis or clubbing, extremities motor strength 5/5 Skin: no rashes, warm and dry normal turgor Neurologic: PERRL, EOMI, accommodation nl, no face palsy, no dysarthria CN's II- XI intact bilaterally and moves all extremities Psychiatric: A+Ox3, euthymic affect Results & Data Results & Data Vital Signs (Past 12 Hours) Vital Signs Temp Pulse Pulse Resp BP Pulse Ox O2 Del Method 06/09/23 15:54 74 06/09/23 12:36 68 06/09/23 11:28 36.8 C 66 16 114/75 98 Room Air 06/09/23 07:33 78 18 123/70 98 Room Air Laboratory Results Laboratory Results WBC 14.75 K/ul (4.8-10.8) H 06/09/23 04:09 RBC 4.39 M/uL (4.70-6.10) L 06/09/23 04:09 Hgb 12.6 g/dl (14.0-18.0) L 06/09/23 04:09 Hct 38.1 % (42.0-52.0) L 06/09/23 04:09 MCV 86.8 fL (80.0-100.0) 06/09/23 04:09 MCH 28.7 pg (25.0-34.0) 06/09/23 04:09 MCHC 33.1 g/dL (32.0-36.0) 06/09/23 04:09 RDW Std Deviation 40.4 fL (36.4-46.3) 06/09/23 04:09 RDW Coeff of Leah 12.6 % (11.5-14.5) 06/09/23 04:09 Plt Count 286 K/uL (130-400) 06/09/23 04:09 MPV 9.8 fL (9.4-12.4) 06/09/23 04:09 Immature Gran % (Auto) 0.9 % 06/09/23 04:09 Neut % (Auto) 75.2 % 06/09/23 04:09 Lymph % (Auto) 9.0 % 06/09/23 04:09 [place] % (Auto) 13.4 % 06/09/23 04:09 Eos % (Auto) 1.2 % 06/09/23 04:09 Baso % (Auto) 0.3 % 06/09/23 04:09 Neut # (Auto) 11.10 K/uL (1.40-6.50) H 06/09/23 04:09 Lymph # (Auto) 1.33 K/uL (1.2-3.4) 06/09/23 04:09 [place] # (Auto) 1.97 K/uL (0.11-0.59) H 06/09/23 04:09 Eos # (Auto) 0.17 K/uL (0-0.50) 06/09/23 04:09 Baso # (Auto) 0.05 K/uL (0-0.2) 06/09/23 04:09 Immature Gran # (Auto) 0.13 K/uL (0.01-0.20) 06/09/23 04:09 Echinocytes 1+ 06/08/23 14:40 Sodium 134 mmol/L (136-145) L 06/09/23 04:09 Potassium 4.0 mmol/L (3.5-5.1) 06/09/23 04:09 Chloride 103 mmol/L (98-107) 06/09/23 04:09 Carbon Dioxide 25 mmol/L (21-32) 06/09/23 04:09 Anion Gap 6 (3-11) 06/09/23 04:09 BUN 11 mg/dl (6-23) 06/09/23 04:09 Creatinine 1.02 mg/dl (0.6-1.4) 06/09/23 04:09 Est Cr Clr Drug Dosing 78.5 ml/min 06/09/23 04:09 Est GFR ( Amer) 91.5 ml/min 06/09/23 04:09 Est GFR (Non-Af Amer) 79.0 ml/min 06/09/23 04:09 BUN/Creatinine Ratio 10.8 (10-20) 06/09/23 04:09 Glucose 118 mg/dl (70-99(Fasting)) H 06/09/23 04:09 Calcium 9.3 mg/dl (8.6-10.3) 06/09/23 04:09 Total Bilirubin 0.9 mg/dl (0.2-1.0) 06/09/23 04:09 AST 42 U/L (13-39) H 06/09/23 04:09 ALT 105 U/L (7-52) H 06/09/23 04:09 Alkaline Phosphatase 171 U/L (34-104) H 06/09/23 04:09 Troponin I High Sens 9.2 pg/ml (0-20) 06/08/23 14:40 Total Protein 6.8 gm/dl (6.0-8.3) 06/09/23 04:09 Albumin 3.5 gm/dl (3.4-5.0) 06/09/23 04:09 Globulin 3.3 gm/dl (2.5-4.0) 06/09/23 04:09 Albumin/Globulin Ratio 1.1 (0.9-2) 06/09/23 04:09 Lipase 7 U/L (11-82) L 06/08/23 14:40 Urine Color Dark Yellow 06/08/23 14:40 Urine Appearance Clear (Clear) 06/08/23 14:40 Urine pH 5.5 (4.5-7.5) 06/08/23 14:40 Ur Specific [place] 1.014 (1.000-1.030) 06/08/23 14:40 Urine Protein Negative (Negative) 06/08/23 14:40 Urine Glucose (UA) Negative (Negative) 06/08/23 14:40 Urine Ketones Negative (Negative) 06/08/23 14:40 Urine Blood Negative (Negative) 06/08/23 14:40 Urine Nitrite Negative (Negative) 06/08/23 14:40 Urine Bilirubin Negative (Negative) 06/08/23 14:40 Urine Urobilinogen Negative (Negative) 06/08/23 14:40 Ur Leukocyte Esterase Negative (Negative) 06/08/23 14:40 Anaplasma Smear Cancelled 06/08/23 14:40 Anaplasma Smear See Comment 06/08/23 14:40 Babesia Smear Cancelled 06/08/23 14:40 Babesia Smear See Comment 06/08/23 14:40 Lyme Disease IgG Ab Positive (Negative) A 06/08/23 14:40 Lyme Disease IgM Ab Equivocal (Negative) A 06/08/23 14:40 SARS-CoV-2 (PCR) NEGATIVE (Negative) 06/08/23 14:45 Influenza Type A (PCR) Negative (Neg) 06/08/23 14:45 Influenza Type B (PCR) Negative (Neg) 06/08/23 14:45 RSV (RT-PCR) Negative (Neg) 06/08/23 14:45 Impressions Abdomen/Pelvis CT 06/08/23 14:[address] WITH IV CONTRAST CT DOSE: 1293.42 mGy.cm HISTORY: Acute lower abdominal pain lower abd pain TECHNIQUE: Multiaxial CT images of the abdomen and pelvis were performed following the IV administration of 86 cc of Optiray, A dose lowering technique was utilized adhering to the principles of ALARA. COMPARISON STUDY: None. FINDINGS: Subsegmental bibasilar atelectasis. Unremarkable spleen, pancreas and adrenal glands. Contracted gallbladder. Remarkable liver. Patent portal vein. Unremarkable kidneys. No hydronephrosis. Mild prostatomegaly. Mild nonspecific urinary bladder wall thickening. Small fat filled inguinal hernias are suggested. No aortic aneurysm or lymphadenopathy. There is no bowel obstruction. Air-fluid levels are noted throughout the large bowel. Colonic diverticulosis. There is wall thickening with mucosal hyperemia of the proximal sigmoid colon with adjacent inflammatory stranding and peritoneal thickening/enhancement. A focus of extraluminal gas is noted within the sigmoid mesocolon on image 217. Ill-defined adjacent fluid within the mesocolon measures up to 6 cm. The appendix is not definitively seen. Tiny fat filled umbilical hernia. Posterior annular disc bulge at L5-S1 with bilateral foraminal narrowing No acute fracture. IMPRESSION: 1. Acute sigmoid diverticulitis with contained perforation. There is a 6 cm phlegmon/developing abscess without a mature wall. Therefore this would not be amendable to percutaneous biopsy at this time. 2. No bowel obstruction. 3. Additional findings as above. ACT 112: Negative or not required by law. The above report was generated using voice recognition software. It may contain grammatical, syntax or spelling errors. Electronically signed by: Larry Osborne M.D. 06/08/2023 4:26 PM Chest X-Ray 06/08/23 14:13 XR chest 1V portable HISTORY: 62 years-old Male abd pain acute chest and abdominal pain COMPARISON: None TECHNIQUE: AP view of the chest FINDINGS: Cardiac mediastinal and hilar silhouettes are within normal limits. No pneumothorax, pleural effusion, airspace consolidation or pulmonary edema. Bones appear grossly intact. IMPRESSION: No acute process. ACT 112: Negative or not required by law. The above report was generated using voice recognition software. It may contain grammatical, syntax or spelling errors. Electronically signed by: Larry Osborne M.D. 06/08/2023 3:09 PM Liver Ultrasound 06/08/23 21:02 US liver CLINICAL HISTORY: Elevated liver enzymes TECHNIQUE: Multiple real-time sonographic images of the right upper quadrant were obtained. Comparison: Comparison is made to CT abdomen pelvis 06/08/2023 FINDINGS: The liver is diffusely echogenic in appearance with poor ultrasound penetration, with normal contour, which is consistent with fatty infiltration. No focal mass lesions are seen. No intrahepatic ductal dilatation is seen. No gallstones or sludge are identified within the gallbladder. The gallbladder wall is not thickened. There is no pericholecystic fluid present. A sonographic Munguia's si gn was not elicited by the nutrition tech. The common duct measures 0.3 cm in diameter at the level of the hepatic artery. The visualized portions of the pancreas appear normal. The right kidney shows normal echogenicity, cortical thickness and renal contour. The right kidney shows no evidence of hydronephrosis or mass. No ascites or free fluid is seen in Cunha's pouch. IMPRESSION: Hepatic steatosis. ACT 112: Negative or not required by law. Electronically signed by: Gino Barnes M.D. 06/09/2023 8:13 AM
[2023-06-10] MEDS: D5NSS + 20MEQ KCL 20 MEQ/1,000 ML BAG IV SCH ×3 (02:27→23:10)
[2023-06-10] MEDS: CEFEPIME 2,000 MG in SYRINGE 0 ML IV SCH ×3 (06:30→22:14)
[2023-06-10] MEDS: metroNIDAZOLE 500 MG/100 ML BAG IV SCH ×3 (06:35→22:15)
[2023-06-10] MEDS: DOXYCYCLINE HYCLATE 100 MG CAP PO SCH ×2 (07:57→21:28)
[2023-06-10 08:06] LABS: Basophils # (auto) 0.05 K/uL (0-0.2); Basophils % (auto) 0.5 %; Eosinophils # (auto) 0.19 K/uL (0-0.50); Eosinophils % (auto) 1.8 %; Hematocrit (blood only) 38.5 % (42.0-52.0); Hemoglobin 12.7 g/dl (14.0-18.0); Lymphocytes # (auto) 1.29 K/uL (1.2-3.4); Lymphocytes % (auto) 12.5 %; Mean Corpuscular Hemoglobin 28.5 pg (25.0-34.0); Mean Corpuscular Volume 86.3 fL (80.0-100.0); Monocytes % (auto) 12.6 %; Neutrophils # (auto) 7.37 K/uL (1.40-6.50); Neutrophils % (auto) 71.6 %; Platelet Count 291 K/uL (130-400); RDW Coefficient of Variation 12.5 % (11.5-14.5); RDW Standard Deviation 39.7 fL (36.4-46.3); Red Blood Count 4.46 M/uL (4.70-6.10)
[2023-06-10 08:28] LABS: HBSAG NON-REACTIVE (NON-REACTIVE); Hepatitis A Antibody IgM NON-REACTIVE (NON-REACTIVE); Hepatitis B Core Antibody IgM NON-REACTIVE (NON-REACTIVE)
[2023-06-10 08:35] LABS: Albumin Level 3.3 gm/dl (3.4-5.0); BUN Creatinine Ratio 12.3 (10-20); Bilirubin,Total 0.6 mg/dl (0.2-1.0); Calcium 9.1 mg/dl (8.6-10.3); Creatinine Clr Calc Pharmacy 124.1 ml/min; Est GFR (Non-African American) 100.1 ml/min; Globulin 3.3 gm/dl (2.5-4.0); Potassium 3.9 mmol/L (3.5-5.1); Total Protein 6.6 gm/dl (6.0-8.3)
--- NOTE | 2023-06-10 09:01 | Surgery Progress Note ---
Date of Service June 10, 2023 Assessment & Plan (1) Diverticulitis: Plan: He is overall improved and his leukocytosis has resolved Can trial clear liquids and see how he does over the course of today We will follow Admission and Anticipated Discharge Date Admission Date: June 08, 2023 Subjective Patient seen and examined. Feels better than yesterday. Has less abdominal pain. No nausea or vomiting. Afebrile. Review of Systems Constitutional: no fever and no chills Physical Exam Constitutional: WD/WN, vitals as above Gastrointestinal (Abdomen): Soft, mild tenderness palpation suprapubic and left lower quadrant, no guarding, no rebound Results & Data Vital Signs (Past 12 Hours) Vital Signs Temp Pulse Pulse Resp BP Pulse Ox O2 Del Method 06/10/23 07:52 36.7 C 61 18 119/73 96 Room Air 06/10/23 07:29 65 06/10/23 02:43 36.5 C 65 18 121/81 97 Room Air 06/09/23 22:00 37.1 C 65 16 117/70 95 Room Air 06/09/23 22:00 88 PG Care Time/CCT Total # of Minutes Spent Total Time Spent with Patient: Total time spent is greater than 50% in coordination of care (as documented) at patient's floor/unit and/or counseling patient: Coding Level of Care Code 50184 SUB INP/OBS CARE Diagnoses Diverticulitis K57.92
[2023-06-10] MEDS: ACETAMINOPHEN 325 MG TAB PO PRN ×2 (10:40→15:39)
--- NOTE | 2023-06-10 17:02 | Hospitalist Progress Note ---
Date of Service June 10, 2023 Assessment & Plan (1) Abscess of sigmoid colon due to diverticulitis: Plan: Patient is a 62 yr male with past medical history of Resendez's esophagus who presented to the ED with abdominal pain since last 1 month. left lower abdominal pain about a month ago which progressively worsened. Acute sigmoid diverticulitis with abscess and contained perforation-POA --CT ABD:Acute sigmoid diverticulitis with contained perforation. There is a 6 cm phlegmon/developing abscess without a mature wall. Therefore this would not be amendable to percutaneous biopsy at this time. No bowel obstruction. -- Blood cultures negative to date --Continue IV cefepime, Flagyl Appreciate surgery input Clear liquid diet today Leukocytosis resolved Received IV fluids Suspected Lyme's disease Serology pending Continue doxycycline for now Hyponatremia Sodium levels normalized Monitor Transaminitis Likely due to hepatic steatosis Liver USD:Hepatic steatosis. Hepatitis serology negative LFTs improving H/O Resendez esophagus Continue PPI DVT Px: Lovenox SQ Code Status Full code Admission and Anticipated Discharge Date Admission Date: June 08, 2023 Subjective Patient is seen and examined at bedside Abdominal pain better when compared to yesterday Reports nausea associated with headache this morning Denies any chest pain, dyspnea No other complaints Review of Systems Review of Systems: All systems reviewed & are unremarkable except as noted in Subjective Physical Exam Physical Exam: Physical Exam: Vitals signs as noted above General Appearance:Moderately built and nourished, no apparent distress Head: normocephalic, Atraumatic Eyes: normal inspection, EOMI Neck: supple, Trachea midline Respiratory/Chest: Normal breath sounds, CTA, No accessory muscle use Cardiovascular: S1, S2, No murmur Abdomen/GI:Soft, +Mildly distended, Non tender, Bowel sounds present Extremities/Musculoskeletal:normal inspection, no edema Neurologic/Psych:AAOX3, grossly no focal neurological deficits Skin: normal color, warm Results & Data Results & Data Vital Signs (Past 12 Hours) Vital Signs Temp Pulse Pulse Resp BP Pulse Ox O2 Del Method 06/10/23 15:45 36.4 C L 63 16 120/72 96 Room Air 06/10/23 11:06 36.7 C 67 18 112/71 95 Room Air 06/10/23 07:52 36.7 C 61 18 119/73 96 Room Air 06/10/23 07:29 65 Laboratory Results Short CBC 06/10/23 Range/Units 07:15 WBC 10.30 (4.8-10.8) K/ul Hgb 12.7 L (14.0-18.0) g/dl Hct 38.5 L (42.0-52.0) % Plt Count 291 (130-400) K/uL BMP 06/10/23 07:15 Sodium 137 Potassium 3.9 Chloride 108 H Carbon Dioxide 24 BUN 9 Creatinine 0.73 Glucose 109 H Calcium 9.1 Liver Function 06/10/23 Range/Units 07:15 Total Bilirubin 0.6 (0.2-1.0) mg/dl AST 27 (13-39) U/L ALT 74 H (7-52) U/L Alkaline Phosphatase 149 H (34-104) U/L Albumin 3.3 L (3.4-5.0) gm/dl
[2023-06-10] MEDS: PANTOprazole 40 MG TAB PO SCH (17:51)
[2023-06-10] MEDS: ENOXAPARIN INJ 40 MG/0.4 ML SYR SQ SCH (17:52)
[2023-06-10] MEDS: ONDANSETRON INJ 2 MG/ML 2 ML VIAL IV PRN (20:36)
[2023-06-11 01:08] LABS: 18KDIGG Band REACTIVE; 23KDIGG Band NON-REACTIVE; 23KDIGM Band NON-REACTIVE; 28KDIGG Band REACTIVE; 30KDIGG Band REACTIVE; 39KDIGG Band REACTIVE; 39KDIGM Band NON-REACTIVE; 41KDIGG Band REACTIVE; 41KDIGM Band NON-REACTIVE; 45KDIGG Band REACTIVE; 58KDIGG Band REACTIVE; 66KDIGG Band REACTIVE; 93KDIGG Band REACTIVE; Lyme Antibodies, WB IgG POSITIVE (NEGATIVE); Lyme Antibodies, WB IgM NEGATIVE (NEGATIVE)
[2023-06-11] MEDS: D5NSS + 20MEQ KCL 20 MEQ/1,000 ML BAG IV SCH (04:26)
[2023-06-11] MEDS: CEFEPIME 2,000 MG in SYRINGE 0 ML IV SCH ×4 (05:59→22:31)
[2023-06-11] MEDS: metroNIDAZOLE 500 MG/100 ML BAG IV SCH ×4 (06:00→22:31)
[2023-06-11 07:55] LABS: Hematocrit (blood only) 39.1 % (42.0-52.0); Mean Corpuscular Hemoglobin 28.4 pg (25.0-34.0); Mean Corpuscular Hgb Conc 33.2 g/dL (32.0-36.0); Mean Corpuscular Volume 85.6 fL (80.0-100.0); Mean Platelet Volume 10.1 fL (9.4-12.4); Platelet Count 344 K/uL (130-400); RDW Coefficient of Variation 12.4 % (11.5-14.5); RDW Standard Deviation 38.9 fL (36.4-46.3); Red Blood Count 4.57 M/uL (4.70-6.10); White Blood Count 8.13 K/ul (4.8-10.8)
[2023-06-11] MEDS: DOXYCYCLINE HYCLATE 100 MG CAP PO SCH (07:58)
[2023-06-11 08:22] LABS: Albumin Level 3.2 gm/dl (3.4-5.0); BUN Creatinine Ratio 7.5 (10-20); Bilirubin,Total 0.4 mg/dl (0.2-1.0); Calcium 9.4 mg/dl (8.6-10.3); Creatinine Clr Calc Pharmacy 113.1 ml/min; Est GFR (African American) 111.7 ml/min; Est GFR (Non-African American) 96.4 ml/min; Globulin 3.1 gm/dl (2.5-4.0); Magnesium 1.8 mg/dl (1.7-2.4); Potassium 4.5 mmol/L (3.5-5.1); Total Protein 6.3 gm/dl (6.0-8.3)
[2023-06-11] MEDS: PANTOprazole 40 MG TAB PO SCH (08:57)
--- NOTE | 2023-06-11 09:06 | Surgery Progress Note ---
Date of Service June 11, 2023 Assessment & Plan (1) Diverticulitis: Plan: Pt reports he is having nausea and vomiting with doxycycline, can tolerate it with Zofran Tolerating clear liquids and drinking water without nausea or vomiting Reports no Abdominal pain Passing flatus and had a liquid BM this AM WBC 10.3 down from yesterday (14.7) LFT downtrending Will continue to monitor Admission and Anticipated Discharge Date Admission Date: June 08, 2023 Supervising Physician Co-Signing Physician Notes I personally saw and evaluated the patient with Casey NUR and agree with the assessment and plan. 62-year-old male with acute sigmoid diverticulitis with phlegmon versus developing abscess He is doing well and tolerating clear liquids His leukocytosis has resolved and he has almost no abdominal pain on exam We will advance his diet as tolerated and can likely be discharged tomorrow Surgical sign off at this time, please call with any questions or concerns Subjective Patient sitting on bed then stated he was going to vomit Patient vomited in toilet yellowish colored clear liquid Reports that the doxycycline he is taking for the Lyme disease is upsetting his stomach, stated that he had Zofran the other morning and tolerated doxycycline fine without nausea or vomiting. Patient instructed to ask for Zofran before taking Doxycycline. Patient is tolerating clear liquids and drinking water without nausea or vomiting Reports no Abdominal pain Passing flatus and had a liquid BM this AM Review of Systems Constitutional: no fever, no chills and no sweats Respiratory: no dyspnea Cardiovascular: no chest pain Gastrointestinal: + nausea and + vomiting; no abdominal pain Genitourinary: no problem reported Physical Exam Constitutional: cooperative Respiratory: normal respiratory effort and able to speak in complete sentences; no respiratory distress Cardiovascular: Rate/Rhythm: + bradycardic Gastrointestinal (Abdomen): Inspection/Auscultation: abdomen not distended Percussion/Palpation: abdomen soft; abdomen nontender and no guarding Results & Data Vital Signs (Past 12 Hours) Vital Signs Temp Pulse Pulse Resp BP Pulse Ox O2 Del Method 06/11/23 08:20 98.1 F 58 L 16 152/87 H 97 Room Air 06/11/23 07:18 65 06/11/23 03:30 97.3 F L 60 18 126/73 95 Room Air 06/10/23 22:23 60 06/10/23 22:00 98.4 F 69 18 124/76 95 Room Air PG Care Time/CCT Total # of Minutes Spent Total Time Spent with Patient: Total time spent is greater than 50% in coordination of care (as documented) at patient's floor/unit and/or counseling patient: Coding Level of Care Code 63068 SUB INP/OBS CARE 11/13MIN Diagnoses Diverticulitis K57.92
[2023-06-11] MEDS: ONDANSETRON INJ 2 MG/ML 2 ML VIAL IV PRN (09:08)
[2023-06-11] MEDS ORDERED: MoRPHine SULFATE 2 MG/ML CARP IV PRN (09:15)
[2023-06-11] MEDS: ACETAMINOPHEN 325 MG TAB PO PRN ×2 (10:23→17:45)
[2023-06-11] MEDS: DOXYCYCLINE HYCLATE 100 MG in DEXTROSE 5% 100 ML IV SCH ×2 (10:24→23:31)
[2023-06-11] MEDS: ENOXAPARIN INJ 40 MG/0.4 ML SYR SQ SCH (11:45)
--- NOTE | 2023-06-11 16:48 | Hospitalist Progress Note ---
Date of Service June 11, 2023 Assessment & Plan (1) Abscess of sigmoid colon due to diverticulitis: Plan: Patient is a 62 yr male with past medical history of Resendez's esophagus who presented to the ED with abdominal pain since last 1 month. left lower abdominal pain about a month ago which progressively worsened. Acute sigmoid diverticulitis with abscess and contained perforation-POA --CT ABD:Acute sigmoid diverticulitis with contained perforation. There is a 6 cm phlegmon/developing abscess without a mature wall. Therefore this would not be amendable to percutaneous biopsy at this time. No bowel obstruction. -- Blood cultures negative to date --Continue IV cefepime, Flagyl Appreciate surgery input Leukocytosis resolved Received IV fluids Tolerating clear liquid diet Surgery following Antiemetics as needed Lyme's disease-POA Serology reviewed Has not tolerated oral doxycycline Continue IV doxycycline for now Follow-up Anaplasma DNA--pending If Anaplasma DNA negative, will consider to change IV cefepime to ceftriaxone and discontinue doxycycline to titrate medications Hyponatremia Sodium levels normalized Monitor Transaminitis Likely due to hepatic steatosis Liver USD:Hepatic steatosis. Hepatitis serology negative LFTs improving H/O Resendez esophagus Continue PPI DVT Px: Lovenox SQ Code Status Full code Admission and Anticipated Discharge Date Admission Date: June 08, 2023 Subjective Patient is seen and examined at bedside States having nausea, vomiting due to oral intolerance Denies any abdominal pain today Tolerating clear liquid diet Discussed with surgery today Denies any chest pain, dyspnea Review of Systems Review of Systems: All systems reviewed & are unremarkable except as noted in Subjective Physical Exam Physical Exam: Physical Exam: Vitals signs as noted above General Appearance:Moderately built and nourished, no apparent distress Head: normocephalic, Atraumatic Eyes: normal inspection, EOMI Neck: supple, Trachea midline Respiratory/Chest: Normal breath sounds, CTA, No accessory muscle use Cardiovascular: S1, S2, No murmur Abdomen/GI:Soft, +Mildly distended, Non tender, Bowel sounds present Extremities/Musculoskeletal:normal inspection, no edema Neurologic/Psych:AAOX3, grossly no focal neurological deficits Skin: normal color, warm Results & Data Results & Data Vital Signs (Past 12 Hours) Vital Signs Temp Pulse Pulse Resp BP Pulse Ox O2 Del Method 06/11/23 15:40 36.7 C 62 16 126/87 98 Room Air 06/11/23 16:09 65 06/11/23 11:15 36.6 C 52 L 16 135/76 95 Room Air 06/11/23 08:20 36.7 C 58 L 16 152/87 H 97 Room Air 06/11/23 07:18 65 Laboratory Results Short CBC 06/11/23 Range/Units 07:22 WBC 8.13 (4.8-10.8) K/ul Hgb 13.0 L (14.0-18.0) g/dl Hct 39.1 L (42.0-52.0) % Plt Count 344 (130-400) K/uL BMP 06/11/23 07:22 Sodium 139 Potassium 4.5 Chloride 109 H Carbon Dioxide 27 BUN 6 Creatinine 0.80 Glucose 102 H Calcium 9.4 Liver Function 06/11/23 Range/Units 07:22 Total Bilirubin 0.4 (0.2-1.0) mg/dl AST 29 (13-39) U/L ALT 61 H (7-52) U/L Alkaline Phosphatase 126 H (34-104) U/L Albumin 3.2 L (3.4-5.0) gm/dl
[2023-06-12] MEDS: D5NSS + 20MEQ KCL 20 MEQ/1,000 ML BAG IV SCH (01:58)
[2023-06-12 05:12] LABS: Babesia microti DNA Not Detected (Not Detected)
[2023-06-12] MEDS: CEFEPIME 2,000 MG in SYRINGE 0 ML IV SCH ×2 (06:01→14:12)
[2023-06-12] MEDS: metroNIDAZOLE 500 MG/100 ML BAG IV SCH ×2 (06:07→14:13)
[2023-06-12 06:33] LABS: Hematocrit (blood only) 37.8 % (42.0-52.0); Hemoglobin 12.6 g/dl (14.0-18.0); Mean Corpuscular Hemoglobin 28.7 pg (25.0-34.0); Mean Corpuscular Hgb Conc 33.3 g/dL (32.0-36.0); Mean Corpuscular Volume 86.1 fL (80.0-100.0); Mean Platelet Volume 9.9 fL (9.4-12.4); Platelet Count 341 K/uL (130-400); RDW Coefficient of Variation 12.5 % (11.5-14.5); RDW Standard Deviation 39.4 fL (36.4-46.3); Red Blood Count 4.39 M/uL (4.70-6.10); White Blood Count 7.51 K/ul (4.8-10.8)
[2023-06-12 06:53] LABS: Albumin Globulin Ratio 1.2 (0.9-2); Albumin Level 3.2 gm/dl (3.4-5.0); Bilirubin,Total 0.4 mg/dl (0.2-1.0); Calcium 9.1 mg/dl (8.6-10.3); Creatinine Clr Calc Pharmacy 108.4 ml/min; Est GFR (African American) 109.5 ml/min; Est GFR (Non-African American) 94.5 ml/min; Globulin 2.7 gm/dl (2.5-4.0); Potassium 3.8 mmol/L (3.5-5.1); Total Protein 5.9 gm/dl (6.0-8.3)
[2023-06-12] MEDS: DOXYCYCLINE HYCLATE 100 MG in DEXTROSE 5% 100 ML IV SCH (08:40)
[2023-06-12] MEDS: ENOXAPARIN INJ 40 MG/0.4 ML SYR SQ SCH (08:41)
[2023-06-12] MEDS: PANTOprazole 40 MG TAB PO SCH (08:41)
[2023-06-12] MEDS ORDERED: ADVANCED PROBIOTIC 1250 MG CAPSULE PO SCH (10:00)
[2023-06-12 13:07] VITALS: PULSE 58; TEMP 97.9; O2SAT 96
--- NOTE | 2023-06-12 13:29 | Hospitalist Progress Note ---
Date of Service June 12, 2023 Assessment & Plan (1) Abscess of sigmoid colon due to diverticulitis: Plan: Patient is a 62 yr male with past medical history of Resendez's esophagus who presented to the ED with abdominal pain since last 1 month. left lower abdominal pain about a month ago which progressively worsened. Acute sigmoid diverticulitis with abscess and contained perforation-POA --CT ABD:Acute sigmoid diverticulitis with contained perforation. There is a 6 cm phlegmon/developing abscess without a mature wall. Therefore this would not be amendable to percutaneous biopsy at this time. No bowel obstruction. -- Blood cultures negative to date --Continue IV cefepime, Flagyl Appreciate surgery input Leukocytosis resolved Received IV fluids Surgery following Antiemetics as needed Tolerated regular diet Plan to discharge on p.o. antibiotics to complete the course Needs follow-up with surgery upon discharge Lyme's disease-POA Serology reviewed Has not tolerated oral doxycycline Continue IV doxycycline while hospitalized Follow-up Anaplasma DNA--pending Plan to transition to cefuroxime (given intolerance to Doxycycline) to complete 2-week course. Hyponatremia Sodium levels normalized Monitor Transaminitis Likely due to hepatic steatosis Liver USD:Hepatic steatosis. Hepatitis serology negative LFTs stable H/O Resendez esophagus Continue PPI DVT Px: Lovenox SQ Code Status Full code Disposition Home Admission and Anticipated Discharge Date Admission Date: June 08, 2023 Subjective Patient is seen and examined at bedside States feeling well today Nausea, vomiting resolved Tolerating regular diet No recurrence of abd pain Denies any chest pain, dyspnea Discussed with Surgery today Plan to discharge home today Review of Systems Review of Systems: All systems reviewed & are unremarkable except as noted in Subjective Physical Exam Physical Exam: Physical Exam: Vitals signs as noted above General Appearance:Moderately built and nourished, no apparent distress Head: normocephalic, Atraumatic Eyes: normal inspection, EOMI Neck: supple, Trachea midline Respiratory/Chest: Normal breath sounds, CTA, No accessory muscle use Cardiovascular: S1, S2, No murmur Abdomen/GI:Soft, +Mildly distended, Non tender, Bowel sounds present Extremities/Musculoskeletal:normal inspection, no edema Neurologic/Psych:AAOX3, grossly no focal neurological deficits Skin: normal color, warm Results & Data Results & Data Vital Signs (Past 12 Hours) Vital Signs Temp Pulse Pulse Resp BP BP Pulse Ox 06/12/23 13:05 36.6 C 58 L 18 118/73 96 06/12/23 09:05 36.7 C 73 18 123/82 91 06/12/23 07:28 61 06/12/23 03:00 36.5 C 50 L 18 133/85 97 O2 Del Method 06/12/23 13:05 Room Air 06/12/23 09:05 Room Air 06/12/23 07:28 06/12/23 03:00 Room Air Laboratory Results Short CBC 06/12/23 Range/Units 05:56 WBC 7.51 (4.8-10.8) K/ul Hgb 12.6 L (14.0-18.0) g/dl Hct 37.8 L (42.0-52.0) % Plt Count 341 (130-400) K/uL BMP 06/12/23 05:56 Sodium 139 Potassium 3.8 Chloride 109 H Carbon Dioxide 26 BUN 5 L Creatinine 0.84 Glucose 105 H Calcium 9.1 Liver Function 06/12/23 Range/Units 05:56 Total Bilirubin 0.4 (0.2-1.0) mg/dl AST 68 H (13-39) U/L ALT 84 H (7-52) U/L Alkaline Phosphatase 119 H (34-104) U/L Albumin 3.2 L (3.4-5.0) gm/dl
--- NOTE | 2023-06-12 13:46 | Discharge Summary ---
Date of Service June 12, 2023 Admission HPI Per Admitting Provider History obtained from interview with the patient and chart review. Patient is a 62-year-old male with past medical history of Resendez's esophagus who presented to the ED with abdominal pain since last 1 month. Patient reports that he started to notice left lower abdominal pain about a month ago which progressively worsened. He reports night sweats; denies any episode of fever or chills. He reports headache; occasional diarrhea and pain on urination He denies diarrhea or constipation; no nausea or vomiting. He reports taking medication for pinworms about 2 weeks ago; reports that things have worsened more since then. He was recommended by his family member to seek medical attention. In the ED, patient was afebrile, normotensive and saturating well on room air. On lab work; leukocytosis present. Mild hyponatremia sodium of 132. He also has transaminitis with elevated AST, ALT and ALP. Lipase is within normal limits. Urinalysis not suggestive of infection. CT abdomen pelvis was done; personally reviewed. Found to have acute sigmoid diverticulitis with contained perforation. 6 cm phlegmon/developing abscess without mature wall. chest x-ray reviewed personally; no acute process. EKG personally interpreted; normal sinus rhythm ED physician discussed the case with general surgery. Recommended admission with IV antibiotics, supportive care and bowel rest. Past medical history; Resendez esophagus; reports to get endoscopy every 2 years Past surgical history; vasectomy Social history; does not smoke. Drinks 1-2 beers daily. Last drink was 4 days ago. No history of withdrawals. Family history; no pertinent history. Admission Exam Per Admitting Provider Constitutional: WD/WN, vitals as above, NAD, sitting up in bed, pleasant, conversing easily Respiratory: Bilateral vesicular breath sound. Cardiovascular: RRR, no murmur, no edema Vessels: no JVD or carotid bruit Chest: normal inspection of chest Abdomen: Tenderness present in left lower quadrant. Bowel sound present. Musculoskeletal: no cyanosis or clubbing, extremities motor strength 5/5 Skin: no rashes, warm and dry normal turgor Neurologic: PERRL, EOMI, accommodation nl, no face palsy, no dysarthria CN's II- XI intact bilaterally and moves all extremities Psychiatric: A+Ox3, euthymic affect Principal Diagnosis Acute sigmoid diverticulitis with abscess Lyme's disease Discharge Data Allergies Allergy/AdvReac Type Severity Reaction Status Date / Time shellfish derived Allergy Intermediate Vomiting Verified 06/08/23 16:38 Consultations 06/08/23 17:21 ED Decision to Admit Stat 06/08/23 21:02 Consult General Surgery Routine Procedures Performed Laboratory Results WBC 7.51 K/ul (4.8-10.8) 06/12/23 05:56 RBC 4.39 M/uL (4.70-6.10) L 06/12/23 05:56 Hgb 12.6 g/dl (14.0-18.0) L 06/12/23 05:56 Hct 37.8 % (42.0-52.0) L 06/12/23 05:56 MCV 86.1 fL (80.0-100.0) 06/12/23 05:56 MCH 28.7 pg (25.0-34.0) 06/12/23 05:56 MCHC 33.3 g/dL (32.0-36.0) 06/12/23 05:56 RDW Std Deviation 39.4 fL (36.4-46.3) 06/12/23 05:56 RDW Coeff of Leah 12.5 % (11.5-14.5) 06/12/23 05:56 Plt Count 341 K/uL (130-400) 06/12/23 05:56 MPV 9.9 fL (9.4-12.4) 06/12/23 05:56 Immature Gran % (Auto) 1.0 % 06/10/23 07:15 Neut % (Auto) 71.6 % 06/10/23 07:15 Lymph % (Auto) 12.5 % 06/10/23 07:15 Republic % (Auto) 12.6 % 06/10/23 07:15 Eos % (Auto) 1.8 % 06/10/23 07:15 Baso % (Auto) 0.5 % 06/10/23 07:15 Neut # (Auto) 7.37 K/uL (1.40-6.50) H 06/10/23 07:15 Lymph # (Auto) 1.29 K/uL (1.2-3.4) 06/10/23 07:15 Republic # (Auto) 1.30 K/uL (0.11-0.59) H 06/10/23 07:15 Eos # (Auto) 0.19 K/uL (0-0.50) 06/10/23 07:15 Baso # (Auto) 0.05 K/uL (0-0.2) 06/10/23 07:15 Immature Gran # (Auto) 0.10 K/uL (0.01-0.20) 06/10/23 07:15 Echinocytes 1+ 06/08/23 14:40 Sodium 139 mmol/L (136-145) 06/12/23 05:56 Potassium 3.8 mmol/L (3.5-5.1) 06/12/23 05:56 Chloride 109 mmol/L (98-107) H 06/12/23 05:56 Carbon Dioxide 26 mmol/L (21-32) 06/12/23 05:56 Anion Gap 4 (3-11) 06/12/23 05:56 BUN 5 mg/dl (6-23) L 06/12/23 05:56 Creatinine 0.84 mg/dl (0.6-1.4) 06/12/23 05:56 Est Cr Clr Drug Dosing 108.4 ml/min 06/12/23 05:56 Est GFR ( Amer) 109.5 ml/min 06/12/23 05:56 Est GFR (Non-Af Amer) 94.5 ml/min 06/12/23 05:56 BUN/Creatinine Ratio 6.0 (10-20) L 06/12/23 05:56 Glucose 105 mg/dl (70-99(Fasting)) H 06/12/23 05:56 Calcium 9.1 mg/dl (8.6-10.3) 06/12/23 05:56 Magnesium 1.8 mg/dl (1.7-2.4) 06/11/23 07:22 Total Bilirubin 0.4 mg/dl (0.2-1.0) 06/12/23 05:56 AST 68 U/L (13-39) H 06/12/23 05:56 ALT 84 U/L (7-52) H 06/12/23 05:56 Alkaline Phosphatase 119 U/L (34-104) H 06/12/23 05:56 Troponin I High Sens 9.2 pg/ml (0-20) 06/08/23 14:40 Total Protein 5.9 gm/dl (6.0-8.3) L 06/12/23 05:56 Albumin 3.2 gm/dl (3.4-5.0) L 06/12/23 05:56 Globulin 2.7 gm/dl (2.5-4.0) 06/12/23 05:56 Albumin/Globulin Ratio 1.2 (0.9-2) 06/12/23 05:56 Lipase 7 U/L (11-82) L 06/08/23 14:40 Urine Color Dark Yellow 06/08/23 14:40 Urine Appearance Clear (Clear) 06/08/23 14:40 Urine pH 5.5 (4.5-7.5) 06/08/23 14:40 Ur Specific [place] 1.014 (1.000-1.030) 06/08/23 14:40 Urine Protein Negative (Negative) 06/08/23 14:40 Urine Glucose (UA) Negative (Negative) 06/08/23 14:40 Urine Ketones Negative (Negative) 06/08/23 14:40 Urine Blood Negative (Negative) 06/08/23 14:40 Urine Nitrite Negative (Negative) 06/08/23 14:40 Urine Bilirubin Negative (Negative) 06/08/23 14:40 Urine Urobilinogen Negative (Negative) 06/08/23 14:40 Ur Leukocyte Esterase Negative (Negative) 06/08/23 14:40 Anaplasma Smear Cancelled 06/08/23 14:40 Anaplasma Smear See Comment 06/08/23 14:40 Babesia Smear Cancelled 06/08/23 14:40 Babesia Smear See Comment 06/08/23 14:40 Babesia microti DNA PCR Not Detected (Not Detected) 06/08/23 14:40 Lyme Disease IgG Ab Positive (Negative) A 06/08/23 14:40 Lyme IgG (Western Blot) POSITIVE (NEGATIVE) A 06/08/23 14:40 Lyme IgG 18 kDa Band REACTIVE A 06/08/23 14:40 Lyme IgG 23 kDa Band NON-REACTIVE 06/08/23 14:40 Lyme IgG 28 kDa Band REACTIVE A 06/08/23 14:40 Lyme IgG 30 kDa Band REACTIVE A 06/08/23 14:40 Lyme IgG 39 kDa Band REACTIVE A 06/08/23 14:40 Lyme IgG 41 kDa Band REACTIVE A 06/08/23 14:40 Lyme IgG 45 kDa Band REACTIVE A 06/08/23 14:40 Lyme IgG 58 kDa Band REACTIVE A 06/08/23 14:40 Lyme IgG 66 kDa Band REACTIVE A 06/08/23 14:40 Lyme IgG 93 kDa Band REACTIVE A 06/08/23 14:40 Lyme IgM Ab (WB) NEGATIVE (NEGATIVE) 06/08/23 14:40 Lyme Disease IgM Ab Equivocal (Negative) A 06/08/23 14:40 Lyme IgM 23 kDa Band NON-REACTIVE 06/08/23 14:40 Lyme IgM 39 kDa Band NON-REACTIVE 06/08/23 14:40 Lyme IgM 41 kDa Band NON-REACTIVE 06/08/23 14:40 SARS-CoV-2 (PCR) NEGATIVE (Negative) 06/08/23 14:45 Hepatitis A IgM Ab NON-REACTIVE (NON-REACTIVE) 06/09/23 04:09 Hep Bs Antigen NON-REACTIVE (NON-REACTIVE) 06/09/23 04:09 Hep Bs Ag Confirmation TNP 06/09/23 04:09 Hep B Core IgM Ab NON-REACTIVE (NON-REACTIVE) 06/09/23 04:09 Hepatitis C Ab (EIA) NON-REACTIVE (NON-REACTIVE) 06/09/23 04:09 Influenza Type A (PCR) Negative (Neg) 06/08/23 14:45 Influenza Type B (PCR) Negative (Neg) 06/08/23 14:45 RSV (RT-PCR) Negative (Neg) 06/08/23 14:45 Impressions Abdomen/Pelvis CT 06/08/23 14:[address] WITH IV CONTRAST CT DOSE: 1293.42 mGy.cm HISTORY: Acute lower abdominal pain lower abd pain TECHNIQUE: Multiaxial CT images of the abdomen and pelvis were performed following the IV administration of 86 cc of Optiray, A dose lowering technique was utilized adhering to the principles of ALARA. COMPARISON STUDY: None. FINDINGS: Subsegmental bibasilar atelectasis. Unremarkable spleen, pancreas and adrenal glands. Contracted gallbladder. Remarkable liver. Patent portal vein. Unremarkable kidneys. No hydronephrosis. Mild prostatomegaly. Mild nonspecific urinary bladder wall thickening. Small fat filled inguinal hernias are suggested. No aortic aneurysm or lymphadenopathy. There is no bowel obstruction. Air-fluid levels are noted throughout the large bowel. Colonic diverticulosis. There is wall thickening with mucosal hyperemia of the proximal sigmoid colon with adjacent inflammatory stranding and peritoneal thickening/enhancement. A focus of extraluminal gas is noted within the sigmoid mesocolon on image 217. Ill-defined adjacent fluid within the mesocolon measures up to 6 cm. The appendix is not definitively seen. Tiny fat filled umbilical hernia. Posterior annular disc bulge at L5-S1 with bilateral foraminal narrowing No acute fracture. IMPRESSION: 1. Acute sigmoid diverticulitis with contained perforation. There is a 6 cm phlegmon/developing abscess without a mature wall. Therefore this would not be amendable to percutaneous biopsy at this time. 2. No bowel obstruction. 3. Additional findings as above. ACT 112: Negative or not required by law. The above report was generated using voice recognition software. It may contain grammatical, syntax or spelling errors. Electronically signed by: Larry Osborne M.D. 06/08/2023 4:26 PM Chest X-Ray 06/08/23 14:13 XR chest 1V portable HISTORY: 62 years-old Male abd pain acute chest and abdominal pain COMPARISON: None TECHNIQUE: AP view of the chest FINDINGS: Cardiac mediastinal and hilar silhouettes are within normal limits. No pneumothorax, pleural effusion, airspace consolidation or pulmonary edema. Bones appear grossly intact. IMPRESSION: No acute process. ACT 112: Negative or not required by law. The above report was generated using voice recognition software. It may contain grammatical, syntax or spelling errors. Electronically signed by: Larry Osborne M.D. 06/08/2023 3:09 PM Liver Ultrasound 06/08/23 21:02 US liver CLINICAL HISTORY: Elevated liver enzymes TECHNIQUE: Multiple real-time sonographic images of the right upper quadrant were obtained. Comparison: Comparison is made to CT abdomen pelvis 06/08/2023 FINDINGS: The liver is diffusely echogenic in appearance with poor ultrasound penetration, with normal contour, which is consistent with fatty infiltration. No focal mass lesions are seen. No intrahepatic ductal dilatation is seen. No gallstones or sludge are identified within the gallbladder. The gallbladder wall is not thickened. There is no pericholecystic fluid present. A sonographic Munguia's sign was not elicited by the director talent management. The common duct measures 0.3 cm in diameter at the level of the hepatic artery. The visualized portions of the pancreas appear normal. The right kidney shows normal echogenicity, cortical thickness and renal contour. The right kidney shows no evidence of hydronephrosis or mass. No ascites or free fluid is seen in Cunha's pouch. IMPRESSION: Hepatic steatosis. ACT 112: Negative or not required by law. Electronically signed by: Gino Barnes M.D. 06/09/2023 8:13 AM Ordered Studies 06/08/23 14:12 CT abd pelvis IV con only Stat 06/08/23 21:02 US liver Routine Hospital Course (1) Abscess of sigmoid colon due to diverticulitis: Patient is a 62 yr male with past medical history of Resendez's esophagus who presented to the ED with abdominal pain since last 1 month. left lower abdominal pain about a month ago which progressively worsened. Acute sigmoid diverticulitis with abscess and contained perforation-POA --CT ABD:Acute sigmoid diverticulitis with contained perforation. There is a 6 cm phlegmon/developing abscess without a mature wall. Therefore this would not be amendable to percutaneous biopsy at this time. No bowel obstruction. -- Blood cultures negative to date --Continue IV cefepime, Flagyl Appreciate surgery input Leukocytosis resolved Received IV fluids Surgery following Antiemetics as needed Tolerated regular diet Plan to discharge on p.o. antibiotics to complete the course Needs follow-up with surgery upon discharge Lyme's disease-POA Serology reviewed Has not tolerated oral doxycycline Continue IV doxycycline while hospitalized Follow-up Anaplasma DNA--pending Plan to transition to cefuroxime (given intolerance to Doxycycline) to complete 2-week course. Hyponatremia Sodium levels normalized Monitor Transaminitis Likely due to hepatic steatosis Liver USD:Hepatic steatosis. Hepatitis serology negative LFTs stable H/O Resendez esophagus Continue PPI DVT Px: Lovenox SQ Code Status Full code Disposition Home Total Time Total Time Spent Total Time Spent (In Minutes): 57 minutes Discharge Plan Discharge Items Patient Disposition: Home - Self-Care Reason For Visit: ACUTE SIGMOLD DIVERTICULITIS WITH CONTAINED Discharge Diagnosis: Acute sigmoid diverticulitis with abscess Lyme's disease Condition on Discharge: Fair Activity: Per Instructions section Exercise/Sports: Wait until after follow-up appointment Non-emergency contact: Primary Care Provider and Surgeon Call non-emergency contact if: you have any medication questions, your symptoms worsen, your pain is concerning for you and you have a fever Follow-up/Referrals: Javier Blood, DO [Physician] - (You may call after you outpatient colonoscopy for follow up with us in the office) Donavon Saunders PA-C [Primary Care Provider] - 06/20/23 10:30 am Diet: Heart Healthy and Low Fiber Addtl Attending Provider Instructions: Follow-up with your primary care physician Donavon Saunders PA-C on 06/20/2023 at 10:30 AM as scheduled Follow-up with your surgeon Dr. Javier Blood in 1-2 weeks as advised -- Complete antibiotic course cefuroxime, metronidazole as prescribed. -- Your final blood culture results and serological test for Anaplasma pending at the time of discharge. Follow-up with your physician for results Seek immediate medical attention if your symptoms reoccur or worsen Please take all medications as instructed on discharge list below. Please call if you have any questions or problems. You can reach a [facility] hospitalist on duty at [facility] 24 hours a day by calling [phone] Pending Studies at Discharge: Yes Studies:: Serological test for anaplasmosis Stand-Alone Forms: My [facility], Smoking Cessation Medications and DC Order Prescriptions: New Advanced Probiotic 625 mg (10 billion cell) Capsule 2 cap PO DAILY Qty: 60 0RF cefuroxime axetil 500 mg tablet 500 mg PO BID Qty: 22 0RF metronidazole 500 mg tablet 500 mg PO Q8H 11 Days Qty: 33 0RF Continued ibuprofen 800 mg tablet 800 mg PO TID PRN (Reason: Pain) omeprazole 20 mg capsule,delayed release(DR/EC) 20 mg PO QAM Rx Instructions: PER PT "ONLY TAKE IN QAM". Discharge Orders: Discharge Order (Routine); Ordered 06/12/23 Ordered By: Zafar Nova Admission Data Admit Date/Time: 06/08/23 17:47 Attending Provider: Zafar Nova Admit Provider: Ramon Robles Primary Care Provider: Donavon Saunders Other Providers: Ramon Robles ; Javier Blood
[2023-06-12 13:53] VITALS: BP 123/82
== END 2023-06-12 15:01 | disposition home or self-care (01) | DRG 392 ==
LOC: ED 13:39 → EDINP 17:47 → SUATTDRO 17:47 → 2W 21:04